=== PATIENT | male | born 1925 | race Caucasian/White ===

== ENCOUNTER → 2016-05-07 | Outpatient (CLI) | payer MEDICARE, OTHER ==
[~2016-05-07] MED LIST: BISA10SU8 PR; CIDA500T2 PO; DIGO0.25 PO; FEXO60TA PO; FOLI1 PO; LATA.005%O RIGHT EYE; LEVO0.5S15 EACH EYE; LEVO150T7 PO; LEXA10TA PO; MAGN30S PO; METO25 PO; MULT-112 PO; RIVA20 PO; STOO100T PO; SUPETAB20 PO; TYLE3 PO; VITA200017 PO; [UNRECOGNIZED DRUG - CODE] PR
[2016-05-07 13:06] LABS: AUTOMATED NEUTROPHIL # 5.7 TH/MM3 (1.8-7.7); BASOPHIL % 0.2 % (0.0-2.0); EOSINOPHIL # 0.3 TH/MM3 (0-0.4); HEMO FLAGS DIFF FINAL; LYMPH % 25.5 % (9.0-44.0); LYMPHOCYTE # 2.3 TH/MM3 (1.0-4.8); MEAN CELL VOLUME 96.8 FL (80.0-100.0); MEAN CORPUSCULAR HEMOGLOBIN 34.1 PG (27.0-34.0); MEAN CORPUSCULAR HGB CONC 35.3 % (32.0-36.0); NEUT % 63.3 % (16.0-70.0); PLATELET COUNT 205 TH/MM3 (150-450); RED BLOOD COUNT 4.34 MIL/MM3 (4.50-5.90); RED CELL DISTRIBUTION WIDTH 14.2 % (11.6-17.2)
[2016-05-07 13:39] LABS: ALKALINE PHOSPHATASE 132 U/L (45-117); ALT (GPT) 17 U/L (12-78); ANION GAP 8 MEQ/L (5-15); AST (GOT) 17 U/L (15-37); BICARBONATE 30.6 MEQ/L (21.0-32.0); BLOOD UREA NITROGEN 17 MG/DL (7-18); CHLORIDE 102 MEQ/L (98-107); GLOMERULAR FILTRATION RATE 76 ML/MIN (>89); GLUCOSE,FASTING 115 MG/DL (74-99); HDL CHOLESTEROL 69.5 MG/DL (40.0-60.0); LDL CHOLESTEROL 65 MG/DL (0-99); POTASSIUM 4.5 MEQ/L (3.5-5.1); SODIUM (NA) 141 MEQ/L (136-145); THYROXINE (T4) 7.8 MCG/DL (4.5-12.1); TOTAL BILIRUBIN ADULT 0.9 MG/DL (0.2-1.0)
[2016-05-07 16:20] LABS: HEMOGLOBIN A1b 1.5 %; HEMOGLOBIN Ao 85.6 %; HEMOGLOBIN P3 3.7 %
== END ==
LOC: PLAB 09:05
PROVIDERS: ATTEND Family Medicine
DX: I10 Essential (primary) hypertension (principal); E78.2 Mixed hyperlipidemia; E03.8 Other specified hypothyroidism; R53.83 Other fatigue; E55.9 Vitamin D deficiency, unspecified; Z79.899 Other long term (current) drug therapy
CPT/HCPCS: 36415; 80053; 80061; 82306; 83036; 84436; 84443; 84480; 85025

== ENCOUNTER → 2016-08-07 | Outpatient (CLI) | payer MEDICARE, OTHER ==
[2016-08-07 13:26] LABS: AUTOMATED NEUTROPHIL # 4.4 TH/MM3 (1.8-7.7); BASOPHIL # 0.1 TH/MM3 (0-0.2); BASOPHIL % 0.9 % (0.0-2.0); EOSINOPHIL # 0.2 TH/MM3 (0-0.4); EOSINOPHIL % 2.4 % (0.0-4.0); HEMATOCRIT 41.3 % (39.0-51.0); HEMO FLAGS DIFF FINAL; LYMPH % 30.3 % (9.0-44.0); LYMPHOCYTE # 2.3 TH/MM3 (1.0-4.8); MEAN CELL VOLUME 94.3 FL (80.0-100.0); MEAN CORPUSCULAR HEMOGLOBIN 33.2 PG (27.0-34.0); MEAN CORPUSCULAR HGB CONC 35.2 % (32.0-36.0); NEUT % 56.4 % (16.0-70.0); PLATELET COUNT 186 TH/MM3 (150-450); RED BLOOD COUNT 4.38 MIL/MM3 (4.50-5.90); RED CELL DISTRIBUTION WIDTH 13.9 % (11.6-17.2); WHITE BLOOD COUNT 7.7 TH/MM3 (4.0-11.0)
[2016-08-07 13:49] LABS: ALT (GPT) 21 U/L (12-78); ANION GAP 6 MEQ/L (5-15); AST (GOT) 17 U/L (15-37); BICARBONATE 29.7 MEQ/L (21.0-32.0); BLOOD UREA NITROGEN 11 MG/DL (7-18); CHLORIDE 104 MEQ/L (98-107); GLOMERULAR FILTRATION RATE 90 ML/MIN (>89); GLUCOSE,FASTING 99 MG/DL (74-99); POTASSIUM 4.1 MEQ/L (3.5-5.1); SODIUM (NA) 140 MEQ/L (136-145)
[2016-08-07 13:58] LABS: ALKALINE PHOSPHATASE 109 U/L (45-117); HDL CHOLESTEROL 59.6 MG/DL (40.0-60.0); LDL CHOLESTEROL 56 MG/DL (0-99); THYROXINE (T4) 7.2 MCG/DL (4.5-12.1); TOTAL BILIRUBIN ADULT 1.2 MG/DL (0.2-1.0)
== END ==
LOC: PLAB 08:15
PROVIDERS: ATTEND Family Medicine
DX: I10 Essential (primary) hypertension (principal); E78.2 Mixed hyperlipidemia; E03.8 Other specified hypothyroidism; R53.83 Other fatigue; E55.9 Vitamin D deficiency, unspecified; Z79.899 Other long term (current) drug therapy
CPT/HCPCS: 36415; 80053; 80061; 82306; 84436; 84443; 84480; 85025

== ENCOUNTER 2017-09-27 14:57 | Inpatient (IN) | payer MEDICARE, OTHER ==
[~2017-09-27] VITALS: Ht 182.9 cm; Wt 92.0 kg
[2017-09-27 15:05] VITALS: BP 158/82; PULSE 69; RESP 20; O2SAT 95
--- NOTE | 2017-09-27 15:12 | PD ---
HPI Chief Complaint: Fall Time Seen by Provider: 15:07 Travel History International Travel<30 days: No Contact w/Intl Traveler<30days: No Traveled to known affect area: No History of Present Illness HPI Patient comes in for evaluation of right hip pain status post mechanical fall while leaving [employer] today after lunch. Patient reports he was walking to his car when he misstepped on the sidewalk causing him to fall landing on his right hip. Patient does report and he has head slightly, but denies loss of consciousness. Patient is on Xarelto for A. fib. Denies any headache, change in vision, chest pain, shortness of breath, neck pain, or abdominal pain. Patient complaining of pain in his right hip describes as a achy soreness that radiates distally. Pain is worse with movement of his right hip. Patient received 4 mg of morphine in route by EMS that seemed to help his pain. 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, A-FIB) High Cholesterol: No Chemotherapy: No Chest Pain: No Congestive Heart Failure: No Diabetes: No Diminished Hearing: No Endocrine: Yes (THYROID) Gastrointestinal Disorders: Yes (constipation) Genitourinary: Yes (PROSTATE CA) Hepatitis: No Hiatal Hernia: No Hypertension: Yes Immune Disorder: No Musculoskeletal: Yes (FX RIGHT SCAPULA, ARTHRITIS, HIP/KNEE PAIN) Neurologic: Yes (BLE NEUROPATHY) Psychiatric: No Reproductive: No Respiratory: No Immunizations Current: No Radiation Therapy: No Thyroid Disease: Yes Past Surgical History Abdominal Surgery: Yes (jayson inguinal hernia x4 appendectomy) AICD: No Body Medical Devices: RIGHT SHOULDER, MESH TO LEFT GROIN, PACEMAKER, EYE LENS Cardiac Surgery: Yes (pacemaker x2) Endocrine Surgery: No Eye Surgery: Yes (jayson cataract removal left eyelid repair) Genitourinary Surgery: Yes (prostatectomy) Joint Replacement: Yes (RIGHT SHOULDER REPLACEMENT) Oral Surgery: Yes (t and a) Pacemaker: Yes (MEDTRONIC) Thoracic Surgery: Yes (PACEMAKER -- 2003, 2011) Other Surgery: Yes (PM) Social History Alcohol Use: Yes (WINE DAILY) Tobacco Use: No Substance Use: Yes Allergies-Medications (Allergen,Severity, Reaction): Coded Allergies: fluoxetine (Unverified Allergy, Severe, hallucinations, 12/04/16) along with tramadol caused hallucinations levobunolol (Unverified Allergy, Severe, UNKNOWN-ON PTS HISTORY AND PHYSICAL, 12/04/16) tramadol (Unverified Allergy, Severe, hallucinations, 12/04/16) along with prozac caused hallucinations azithromycin (Unverified Allergy, Mild, rash, 12/04/16) hives Reported Meds & Prescriptions Reported Meds & Active Scripts Active Reported Ibuprofen 200 Mg Tab 200-400 Mg PO Q4H PRN Stool Softener (Docusate Sodium) 100 Mg Tab 100 Mg PO DAILY Dulcolax Supp (Bisacodyl) 10 Mg Supp 10 Mg RECTAL DAILY Remeron (Mirtazapine) 15 Mg Tab 15 Mg PO HS Vitamin D3 (Cholecalciferol) 2,000 Unit Cap 2,000 Units PO DAILY Vitamin B-12 (Cyanocobalamin) 1,000 Mcg Tab 2,000 Mcg PO DAILY Preservision Areds 2 Softgel (Vit C/E/Zn/Coppr/Lutein/Zeaxan) 250-200-40 Capsule 1 Cap PO DAILY Lexapro (Escitalopram Oxalate) 20 Mg Tab 20 Mg PO DAILY Latanoprost Opth Drops (Latanoprost) 0.005% Drops 1 Drop EACH EYE HS Refrigerate until opened. Levobunolol Opth Drops (Levobunolol HCl) 0.5% Drops 1 Drop EACH EYE BID Potassium Chloride ER (Potassium Chloride) 10 Meq Tab 10 Meq PO DAILY Lasix (Furosemide) 20 Mg Tab 20 Mg PO DAILY AT 12NOON Lasix (Furosemide) 40 Mg Tab 40 Mg PO DAILY IN THE AM Diltiazem ER 12 HR (Diltiazem HCl) 60 Mg Caper 60 Mg PO DAILY [place] Thyroid (Thyroid) 15 Mg Tab 135 Mg PO DAILY Take 1 tablet (15mg) with a 120mg tablet for a total dose of 135mg [place] Thyroid (Thyroid) 120 Mg Tab 135 Mg PO DAILY Take 1 tablet (120mg) with a 15mg tablet for a total dose of 135mg Xarelto (Rivaroxaban) 20 Mg Tab 20 Mg PO DAILY Review of Systems Except as stated in HPI: all other systems reviewed are Neg Physical Exam Narrative GENERAL: Well-developed, overly nourished, in no acute distress, and non-ill appearing. SKIN: Focused skin assessment warm and dry. HEAD: Atraumatic. Normocephalic. EYES: Pupils equal and round. EOMI. No scleral icterus. No injection or drainage. ENT: No nasal bleeding or discharge. Mucous membranes pink and moist. NECK: Trachea midline. Supple. No nuclear rigidity. CARDIOVASCULAR: Dorsal pulses 2+, intact, and equal bilaterally. Capillary refill less than 2 seconds. RESPIRATORY: No accessory muscle use. No respiratory distress. MUSCULOSKELETAL: No obvious deformities. No clubbing. No cyanosis. No edema. Decreased range of motion right hip secondary pain. Right hip is externally rotated leg is shortened. Patient reports pain right hip with passive movement of right lower extremity. Hip: Pulses equal BL distal to injury. Capillary refill less than 2 seconds distal to injury and equal BL. FROM distal to injury and equal BL. Strength distal to injury equal BL. NV intact distal to injury and equal BL. Plantar flexion and dorsal flexion equal BL. Dorsal pulses equal BL. Sensation equal BL 1st web space. NEUROLOGICAL: Awake and alert. No obvious cranial nerve deficits. Motor grossly within normal limits. Normal speech. PSYCHIATRIC: Appropriate mood and affect; insight and judgment normal. Data Data Last Documented VS Vital Signs Date Time Temp Pulse Resp B/P (MAP) Pulse Ox O2 Delivery O2 Flow Rate FiO2 09/27/17 15:05 69 20 158/82 (107) 95 Orders Orders Basic Metabolic Panel (Bmp) (09/27/17 15:07) Complete Blood Count With Diff (09/27/17 15:07) Prothrombin Time / Inr (Pt) (09/27/17 15:07) Act Partial Throm Time (Ptt) (09/27/17 15:07) Iv Access Insert/Monitor (09/27/17 15:07) Ecg Monitoring (09/27/17 15:07) Oximetry (09/27/17 15:07) Sodium Chloride 0.9% Flush (Ns Flush) (09/27/17 15:15) Pelvis, Ap Only (Routine) (09/27/17 ) Femur (Ap & Lat/2vws) (09/27/17 ) Ct Brain W/O Iv Contrast(Rout) (09/27/17 ) Ct Cerv Spine W/O Contrast (09/27/17 ) Admit Order (Ed Use Only) (09/27/17 17:11) Morphine Inj (Morphine Inj) (09/27/17 17:15) Labs Laboratory Tests Test 09/27/17 15:15 White Blood Count 7.2 TH/MM3 Red Blood Count 4.43 MIL/MM3 Hemoglobin 14.6 GM/DL Hematocrit 42.9 % Mean Corpuscular Volume 96.8 FL Mean Corpuscular Hemoglobin 33.0 PG Mean Corpuscular Hemoglobin Concent 34.1 % Red Cell Distribution Width 13.9 % Platelet Count 182 TH/MM3 Mean Platelet Volume 8.3 FL Neutrophils (%) (Auto) 55.6 % Lymphocytes (%) (Auto) 31.8 % Monocytes (%) (Auto) 9.7 % Eosinophils (%) (Auto) 2.7 % Basophils (%) (Auto) 0.2 % Neutrophils # (Auto) 4.0 TH/MM3 Lymphocytes # (Auto) 2.3 TH/MM3 Monocytes # (Auto) 0.7 TH/MM3 Eosinophils # (Auto) 0.2 TH/MM3 Basophils # (Auto) 0.0 TH/MM3 CBC Comment DIFF FINAL Differential Comment Prothrombin Time 12.7 SEC Prothromb Time International Ratio 1.3 RATIO Activated Partial Thromboplast Time 27.2 SEC Blood Urea Nitrogen 15 MG/DL Creatinine 0.93 MG/DL Random Glucose 113 MG/DL Calcium Level 9.0 MG/DL Sodium Level 141 MEQ/L Potassium Level 4.4 MEQ/L Chloride Level 101 MEQ/L Carbon Dioxide Level 32.5 MEQ/L Anion Gap 8 MEQ/L Estimat Glomerular Filtration Rate 77 ML/MIN MDM Medical Decision Making Medical Screen Exam Complete: Yes Emergency Medical Condition: Yes Interpretation(s) Last Impressions Pelvis X-Ray 09/27/17 Signed Impressions: CONCLUSION: Acute intertrochanteric right hip fracture. Head CT 09/27/17 Signed Impressions: CONCLUSION: 1. Negative CT Head non contrast. Femur X-Ray 09/27/17 Signed Impressions: CONCLUSION: Intertrochanteric fracture. Cervical Spine CT 09/27/17 Signed Impressions: CONCLUSION: 1. No fracture or dislocation. 2. Pronounced diffuse degenerative changes. Differential Diagnosis Fracture, dislocation, contusion, strain Narrative Course Patient seen and examined. Initial laboratory radiological studies were ordered. IV was established patient was placed on continuous cardiac monitoring. Additional dose of 2 mg IV morphine was given as patient reports pain is coming back. Discussed all findings and plan of care with patient is agreeable for admission. All questions were answered. Discussed patient with Dr. Brunson, who is in agreement plan of care and disposition. Discussed patient with Dr. Mondragon, who is agreeable to admit the patient. Discussed patient with orthopedics is agreeable to consult on patient. Patient remained stable throughout ED course. Physician Communication Physician Communication [address] Mondragon, who is agreeable to admit the patient. 1716 spoke with Michele over nurse is Dr. Garrido and his PA were both scrubbed and reports Dr. Garrido's awhere of the patient and wants him n.p.o. after midnight and admit to medicine. Diagnosis Primary Impression: Intertrochanteric fracture of right hip Qualified Codes: S72.144A - Nondisplaced intertrochanteric fracture of right femur, initial encounter for closed fracture Admitting Information Admitting Physician Requests: Admit Condition: Stable Adam Mcdonald Sep 27, 2017 15:11
[2017-09-27 15:33] LABS: BASOPHIL % 0.2 % (0.0-2.0); EOSINOPHIL # 0.2 TH/MM3 (0-0.4); EOSINOPHIL % 2.7 % (0.0-4.0); HEMATOCRIT 42.9 % (39.0-51.0); HEMOGLOBIN 14.6 GM/DL (13.0-17.0); LYMPH % 31.8 % (9.0-44.0); LYMPHOCYTE # 2.3 TH/MM3 (1.0-4.8); MEAN CELL VOLUME 96.8 FL (80.0-100.0); MEAN CORPUSCULAR HGB CONC 34.1 % (32.0-36.0); MEAN PLATELET VOLUME 8.3 FL (7.0-11.0); MONO % 9.7 % (0.0-8.0); MONOCYTE # 0.7 TH/MM3 (0-0.9); NEUT % 55.6 % (16.0-70.0); PLATELET COUNT 182 TH/MM3 (150-450); RED BLOOD COUNT 4.43 MIL/MM3 (4.50-5.90); RED CELL DISTRIBUTION WIDTH 13.9 % (11.6-17.2); WHITE BLOOD COUNT 7.2 TH/MM3 (4.0-11.0)
[2017-09-27] MEDS ORDERED: VITA10002 PO (15:34)
[2017-09-27] MEDS ORDERED: DILT60CA PO (15:34)
[2017-09-27] MEDS ORDERED: ARMO120T PO (15:34)
[2017-09-27] MEDS ORDERED: DULC10SU3 RECTAL (15:34)
[2017-09-27] MEDS ORDERED: THYR15 PO (15:34)
[2017-09-27] MEDS ORDERED: LATA0.002 EACH EYE (15:34)
[2017-09-27] MEDS ORDERED: POTA10TA2 PO (15:34)
[2017-09-27] MEDS ORDERED: LEVO0.5S18 EACH EYE (15:34)
[2017-09-27] MEDS ORDERED: LEXA20TA PO (15:34)
[2017-09-27] MEDS ORDERED: REME15TA PO (15:34)
[2017-09-27] MEDS ORDERED: MULT10CA PO (15:34)
[2017-09-27] MEDS ORDERED: XARE20TA PO (15:34)
[2017-09-27] MEDS ORDERED: VITA2000 PO (15:34)
[2017-09-27] MEDS ORDERED: STOO100T PO (15:34)
[2017-09-27] MEDS ORDERED: FURO1TAB62 PO (15:34)
[2017-09-27] MEDS ORDERED: FURO1TAB60 PO (15:34)
[2017-09-27] MEDS ORDERED: IBUP200T47 PO (15:36)
[2017-09-27 15:43] LABS: INTERNATIONAL NORMALIZED RATIO 1.3 RATIO; PROTHROMBIN TIME - PATIENT 12.7 SEC (9.8-11.6)
[2017-09-27 15:58] LABS: BICARBONATE 32.5 MEQ/L (21.0-32.0); CREATININE 0.93 MG/DL (0.60-1.30)
--- NOTE | 2017-09-27 16:06 | RADRPT ---
EXAM DATE: 09/27/2017 3:55 PM EDT AGE/SEX: 89 years / Male INDICATIONS: Pain from fall in right hip. CLINICAL DATA: This is the patient's initial encounter. Patient reports that signs and symptoms have been present for 1 day and indicates a pain score of 10/10. MEDICAL/SURGICAL HISTORY: None. . Bladder surgery. COMPARISON: No prior exams available for comparison. FINDINGS: Examination of the pelvis demonstrates an acute nondisplaced intertrochanteric right hip fracture. No angulation or distraction. Left hip is intact as is the rest of the pelvis. Osteopenia noted. Multip le surgical clips within the pelvis. CONCLUSION: Acute intertrochanteric right hip fracture. Electronically signed by: Varinder Miguel MD 09/27/2017 4:05 PM EDT
--- NOTE | 2017-09-27 16:08 | RADRPT ---
EXAM DATE: 09/27/2017 3:53 PM EDT AGE/SEX: 89 years / Male INDICATIONS: Pain from fall in right hip. CLINICAL DATA: This is the patient's initial encounter. Patient reports that signs and symptoms have been present for 1 day and indicates a pain score of 10/10. MEDICAL/SURGICAL HISTORY: None. None. COMPARISON: No prior exams available for comparison. FINDINGS: There is a complete intertrochanteric fracture on the right side with avulsion of the lesser trochant er. Chronic vascular calcifications are seen. CONCLUSION: Intertrochanteric fracture. Electronically signed by: Nata Aguilera MD 09/27/2017 4:07 PM EDT
--- NOTE | 2017-09-27 16:10 | RADRPT ---
EXAM DATE: 09/27/2017 4:06 PM EDT AGE/SEX: 89 years / Male INDICATIONS: Trauma, fall today. CLINICAL DATA: This is the patient's initial encounter. Patient reports that signs and symptoms have been present for 1 day and indicates a pain score of 4/10. MEDICAL/SURGICAL HISTORY: Hypertension. Carcinoma, prostatic. Appendectomy. RADIATION DOSE: 40.92 CTDI (mGy) COMPARISON: [facility] [place] BRAIN W/O CONTRAST, 06/28/2015. . TECHNIQUE: CT of the head without contrast. Using automated exposure control and adjustment of the mA and/or kV according to patient size, radiation dose was kept as low as reasonably achievable to ob tain optimal diagnostic quality images. FINDINGS: Cerebrum: The ventricles are normal for age. No evidence of midline shift, mass lesion, hemorrhage or acute infarction. No extraaxial fluid collections are seen. Posterior Fossa: The cerebellum and brainstem are intact. The 4th ventricle is midline. The cerebe llopontine angle is unremarkable. Extracranial: The visualized portion of the orbits is intact. Skull: The calvaria is intact. No evidence of skull fracture. CONCLUSION: 1. Negative CT Head non contrast. Electronically signed by: Varinder Miguel MD 09/27/2017 4:08 PM EDT
--- NOTE | 2017-09-27 16:15 | RADRPT ---
EXAM DATE: 09/27/2017 4:08 PM EDT AGE/SEX: 89 years / Male INDICATIONS: Trauma, fall today. CLINICAL DATA: This is the patient's initial encounter. Patient reports that signs and symptoms have been present for 1 day and indicates a pain score of 5/10. MEDICAL/SURGICAL HISTORY: Hypertension. Carcinoma, prostatic. Appendectomy. RADIATION DOSE: 23.21 CTDI (mGy) COMPARISON: No prior exams available for comparison. TECHNIQUE: Contiguous axial images were obtained using helical multirow detector technique. The vol umetric data was post-processed with multiplanar reconstruction in oblique axial, sagittal, and coron al planes. Using automated exposure control and adjustment of the mA and/or kV according to patient s ize, radiation dose was kept as low as reasonably achievable to obtain optimal diagnostic quality roxanna ges. FINDINGS: No fracture or dislocation. Diffuse degenerative changes throughout the entire cervical spine. This i ncludes multilevel mild broad-based disc osteophyte complexes as well as prominent bony uncovertebral hypertrophy with bilateral neural foraminal narrowing. Calcified plaque involving the carotid arteri es. CONCLUSION: 1. No fracture or dislocation. 2. Pronounced diffuse degenerative changes. Electronically signed by: Varinder Miguel MD 09/27/2017 4:13 PM EDT
--- NOTE | 2017-09-27 17:06 | PD ---
Physical Exam Date Seen by Provider: Sep 27, 2017 Time Seen by Provider: 16:00 Narrative This is a 89-year-old male who presents after having a mechanical fall. I am seeing this patient with Earle Mcdonald PA-C. Patient apparently was finishing eating at [employer] when he was walking on the parking lot and tripped and fell. He reports hip pain. He also bumped his head. There was no reported loss of consciousness however the patient is on Xarelto. Data Data Last Documented VS Vital Signs Date Time Temp Pulse Resp B/P (MAP) Pulse Ox O2 Delivery O2 Flow Rate FiO2 09/27/17 15:05 69 20 158/82 (107) 95 Orders Orders Basic Metabolic Panel (Bmp) (09/27/17 15:07) Complete Blood Count With Diff (09/27/17 15:07) Prothrombin Time / Inr (Pt) (09/27/17 15:07) Act Partial Throm Time (Ptt) (09/27/17 15:07) Iv Access Insert/Monitor (09/27/17 15:07) Ecg Monitoring (09/27/17 15:07) Oximetry (09/27/17 15:07) Sodium Chloride 0.9% Flush (Ns Flush) (09/27/17 15:15) Pelvis, Ap Only (Routine) (09/27/17 ) Femur (Ap & Lat/2vws) (09/27/17 ) Ct Brain W/O Iv Contrast(Rout) (09/27/17 ) Ct Cerv Spine W/O Contrast (09/27/17 ) Labs Laboratory Tests Test 09/27/17 15:15 White Blood Count 7.2 TH/MM3 Red Blood Count 4.43 MIL/MM3 Hemoglobin 14.6 GM/DL Hematocrit 42.9 % Mean Corpuscular Volume 96.8 FL Mean Corpuscular Hemoglobin 33.0 PG Mean Corpuscular Hemoglobin Concent 34.1 % Red Cell Distribution Width 13.9 % Platelet Count 182 TH/MM3 Mean Platelet Volume 8.3 FL Neutrophils (%) (Auto) 55.6 % Lymphocytes (%) (Auto) 31.8 % Monocytes (%) (Auto) 9.7 % Eosinophils (%) (Auto) 2.7 % Basophils (%) (Auto) 0.2 % Neutrophils # (Auto) 4.0 TH/MM3 Lymphocytes # (Auto) 2.3 TH/MM3 Monocytes # (Auto) 0.7 TH/MM3 Eosinophils # (Auto) 0.2 TH/MM3 Basophils # (Auto) 0.0 TH/MM3 CBC Comment DIFF FINAL Differential Comment Prothrombin Time 12.7 SEC Prothromb Time International Ratio 1.3 RATIO Activated Partial Thromboplast Time 27.2 SEC Blood Urea Nitrogen 15 MG/DL Creatinine 0.93 MG/DL Random Glucose 113 MG/DL Calcium Level 9.0 MG/DL Sodium Level 141 MEQ/L Potassium Level 4.4 MEQ/L Chloride Level 101 MEQ/L Carbon Dioxide Level 32.5 MEQ/L Anion Gap 8 MEQ/L Estimat Glomerular Filtration Rate 77 ML/MIN MDM Medical Record Reviewed: Yes Supervised Visit with ZULEIKA: Yes Differential Diagnosis Fracture versus contusion versus dislocation Narrative Course 89-year-old male presents after having a mechanical fall while tripping in the parking lot after eating narrow. The patient has a right intertrochanteric fracture. He will be admitted to his primary care physician, Dr. Juanito quiroga. The case was discussed with the orthopedic physician who will see the patient in consultation. He will need to have his anticoagulation stopped in order to have the surgery. The patient will be placed in Patel's traction. Diagnosis Primary Impression: Intertrochanteric fracture of right hip Additional Impressions: Afib Anticoagulated History of pacemaker Admitting Information Admitting Physician Requests: Admit Nghia Brunson MD Sep 27, 2017 17:06
[2017-09-27] MEDS ORDERED: MORPHINE SULFATE 4 MG/ML INJ IV PUSH ONE (17:15)
--- NOTE | 2017-09-27 17:40 | HHI.HP ---
History of Present Illness Primary Care Physician Salvador Mondragon, DO Admission Diagnosis Right hip fracture Diagnoses: History of Present Illness fell in parking lot Review of Systems Constitutional: COMPLAINS OF: Dizziness Musculoskeletal: COMPLAINS OF: Joint pain Past Family Social History Allergies: Coded Allergies: fluoxetine (Unverified Allergy, Severe, hallucinations, 12/04/16) along with tramadol caused hallucinations levobunolol (Unverified Allergy, Severe, UNKNOWN-ON PTS HISTORY AND PHYSICAL, 12/04/16) tramadol (Unverified Allergy, Severe, hallucinations, 12/04/16) along with prozac caused hallucinations azithromycin (Unverified Allergy, Mild, rash, 12/04/16) hives Reported Medications Reported Meds & Active Scripts Active Reported Stool Softener (Docusate Sodium) 100 Mg Tab 100 Mg PO DAILY Dulcolax Supp (Bisacodyl) 10 Mg Supp 10 Mg RECTAL DAILY Remeron (Mirtazapine) 15 Mg Tab 15 Mg PO HS Vitamin D3 (Cholecalciferol) 2,000 Unit Cap 2,000 Units PO DAILY Vitamin B-12 (Cyanocobalamin) 1,000 Mcg Tab 2,000 Mcg PO DAILY Preservision Areds 2 Softgel (Vit C/E/Zn/Coppr/Lutein/Zeaxan) 250-200-40 Capsule 1 Cap PO DAILY Lexapro (Escitalopram Oxalate) 20 Mg Tab 20 Mg PO DAILY Latanoprost Opth Drops (Latanoprost) 0.005% Drops 1 Drop EACH EYE HS Refrigerate until opened. Levobunolol Opth Drops (Levobunolol HCl) 0.5% Drops 1 Drop EACH EYE BID Potassium Chloride ER (Potassium Chloride) 10 Meq Tab 10 Meq PO DAILY Lasix (Furosemide) 20 Mg Tab 20 Mg PO DAILY AT 12NOON Lasix (Furosemide) 40 Mg Tab 40 Mg PO DAILY IN THE AM Diltiazem ER 12 HR (Diltiazem HCl) 60 Mg Caper 60 Mg PO DAILY [place] Thyroid (Thyroid) 15 Mg Tab 135 Mg PO DAILY Take 1 tablet (15mg) with a 120mg tablet for a total dose of 135mg [place] Thyroid (Thyroid) 120 Mg Tab 135 Mg PO DAILY Take 1 tablet (120mg) with a 15mg tablet for a total dose of 135mg Xarelto (Rivaroxaban) 20 Mg Tab 20 Mg PO DAILY Active Ordered Medications depression a fib hptn djd Family History father in old age mother of cancer Social History non smoker occ wine drinker Physical Exam Vital Signs Vital Signs Date Time Temp Pulse Resp B/P (MAP) Pulse Ox O2 Delivery O2 Flow Rate FiO2 09/27/17 15:05 69 20 158/82 (107) 95 Physical Exam GENERAL: This is a well-nourished, well-developed patient, in no apparent distress. SKIN: No rashes, ecchymoses or lesions. Cool and dry. HEAD: Atraumatic. Normocephalic. No temporal or scalp tenderness. EYES: Pupils equal round and reactive. Extraocular motions intact. No scleral icterus. No injection or drainage. ENT: Nose without bleeding, purulent drainage or septal hematoma. Throat without erythema, tonsillar hypertrophy or exudate. Uvula midline. Airway patent. NECK: Trachea midline. No JVD or lymphadenopathy. Supple, nontender, no meningeal signs. CARDIOVASCULAR: Regular rate and rhythm without murmurs, gallops, or rubs. RESPIRATORY: Clear to auscultation. Breath sounds equal bilaterally. No wheezes , rales, or rhonchi. GASTROINTESTINAL: Abdomen soft, non-tender, nondistended. No hepato-splenomegaly , or palpable masses. No guarding. MUSCULOSKELETAL: Extremities without clubbing, cyanosis, or edema. r hip painful r shoulder with old surgery scars NEUROLOGICAL: Awake and alert. Cranial nerves II through XII intact. Motor and sensory grossly within normal limits. Five out of 5 muscle strength in all muscle groups. Normal speech. Laboratory Laboratory Tests Test 09/27/17 15:15 White Blood Count 7.2 Red Blood Count 4.43 Hemoglobin 14.6 Hematocrit 42.9 Mean Corpuscular Volume 96.8 Mean Corpuscular Hemoglobin 33.0 Mean Corpuscular Hemoglobin Concent 34.1 Red Cell Distribution Width 13.9 Platelet Count 182 Mean Platelet Volume 8.3 Neutrophils (%) (Auto) 55.6 Lymphocytes (%) (Auto) 31.8 Monocytes (%) (Auto) 9.7 Eosinophils (%) (Auto) 2.7 Basophils (%) (Auto) 0.2 Neutrophils # (Auto) 4.0 Lymphocytes # (Auto) 2.3 Monocytes # (Auto) 0.7 Eosinophils # (Auto) 0.2 Basophils # (Auto) 0.0 CBC Comment DIFF FINAL Differential Comment Prothrombin Time 12.7 Prothromb Time International Ratio 1.3 Activated Partial Thromboplast Time 27.2 Blood Urea Nitrogen 15 Creatinine 0.93 Random Glucose 113 Calcium Level 9.0 Sodium Level 141 Potassium Level 4.4 Chloride Level 101 Carbon Dioxide Level 32.5 Anion Gap 8 Estimat Glomerular Filtration Rate 77 Result Diagram: 09/27/17 1515 09/27/17 1515 Imaging Last Impressions Pelvis X-Ray 09/27/17 0000 Signed Impressions: CONCLUSION: Acute intertrochanteric right hip fracture. Head CT 09/27/17 0000 Signed Impressions: CONCLUSION: 1. Negative CT Head non contrast. Femur X-Ray 09/27/17 0000 Signed Impressions: CONCLUSION: Intertrochanteric fracture. Cervical Spine CT 09/27/17 0000 Signed Impressions: CONCLUSION: 1. No fracture or dislocation. 2. Pronounced diffuse degenerative changes. Caprini VTE Risk Assessment Caprini VTE Risk Assessment: No/Low Risk (score <= 1) Caprini Risk Assessment Model Point Value = 1 Point Value = 2 Point Value = 3 Point Value = 5 Age 41-60 Minor surgery BMI > 25 kg/m2 Swollen legs Varicose veins or History of unexplained or recurrent spontaneous Oral contraceptives or hormone replacement Sepsis (< 1 month) Serious lung disease, including pneumonia (< 1 month) Abnormal pulmonary function Acute myocardial infarction Congestive heart failure (< 1 month) History of inflammatory bowel disease Medical patient at bed rest Age 61-74 Arthroscopic surgery Major open surgery (> 45 min) Laparoscopic surgery (> 45 min) Malignancy Confined to bed (> 72 hours) Immobilizing plaster cast Central venous access Age >= 75 History of VTE Family history of VTE Factor V Leiden Prothrombin [id number] Lupus anticoagulant Anticardiolipin antibodies Elevated serum homocysteine Heparin-induced thrombocytopenia Other congenital or acquired thrombophilia Stroke (< 1 month) Elective arthroplasty Hip, pelvis, or leg fracture Acute spinal cord injury (< 1 month) Prophylaxis Regimen Total Risk Factor Score Risk Level Prophylaxis Regimen 0-1 Low Early ambulation 2 Moderate Order ONE of the following: *Sequential Compression Device (SCD) *Heparin 5000 units SQ BID 3-4 Higher Order ONE of the following medications: *Heparin 5000 units SQ TID *Enoxaparin/Lovenox 40 mg SQ daily (WT < 150 kg, CrCl > 30 mL/min) *Enoxaparin/Lovenox 30 mg SQ daily (WT < 150 kg, CrCl > 10-29 mL/min) *Enoxaparin/Lovenox 30 mg SQ BID (WT < 150 kg, CrCl > 30 mL/min) AND/OR *Sequential Compression Device (SCD) 5 or more Highest Order ONE of the following medications: *Heparin 5000 units SQ TID (Preferred with Epidurals) *Enoxaparin/Lovenox 40 mg SQ daily (WT < 150 kg, CrCl > 30 mL/min) *Enoxaparin/Lovenox 30 mg SQ daily (WT < 150 kg, CrCl > 10-29 mL/min) *Enoxaparin/Lovenox 30 mg SQ BID (WT < 150 kg, CrCl > 30 mL/min) AND *Sequential Compression Device (SCD) Assessment and Plan Problem List: (1) Intertrochanteric fracture of right hip ICD Codes: S72.141A - Displaced intertrochanteric fracture of right femur, initial encounter for closed fracture Status: Acute Plan: consult ortho for afib (2) Afib ICD Codes: I48.91 - Unspecified atrial fibrillation Status: Acute Plan: consult cardiology (3) History of pacemaker ICD Codes: Z95.0 - Presence of cardiac pacemaker Status: Acute Plan: consult cardiology Problem Qualifiers (1) Intertrochanteric fracture of right hip: Qualified Codes: S72.144A - Nondisplaced intertrochanteric fracture of right femur, initial encounter for closed fracture Salvador Mondragon DO Sep 27, 2017 17:40
[2017-09-27 18:17] VITALS: BP 139/76; PULSE 77; RESP 13; O2SAT 96
[2017-09-27 19:45] VITALS: BP 131/63; PULSE 72; RESP 18; TEMP 97.8; O2SAT 97
[2017-09-27] MEDS: MIRTAZAPINE 15 MG TAB PO SCH (21:22)
[2017-09-27] MEDS: LATANOPROST 0.005% OPHT SOLN 2.5 ML BTL EACH EYE SCH (22:58)
[2017-09-27] MEDS: LEVOBUNOLOL HCL 0.5% OPHT SOLN 5 ML BTL EACH EYE SCH (22:59)
[2017-09-28] VITALS: BP 111/57; PULSE 67; RESP 18; TEMP 98.3; O2SAT 95
[2017-09-28] MEDS: MORPHINE SULFATE 4 MG/ML INJ IV PRN ×5 (00:19→21:01)
[2017-09-28 00:39] LABS: INTERNATIONAL NORMALIZED RATIO 1.2 RATIO; PROTHROMBIN TIME - PATIENT 12.2 SEC (9.8-11.6)
[2017-09-28] MEDS ORDERED: SODIUM CHLORID 0.9% 500 ML IV PRN (03:30)
[2017-09-28] MEDS ORDERED: POVIDONE IODINE 5% (ANTISEPSIS KIT) 4 APPLICATIONS EACH NARE PRN (03:30)
[2017-09-28] MEDS ORDERED: CHLORHEXIDINE GLUCONATE 2 % 1 PACK (2 CLOTHS) TOPICAL PRN (03:30)
[2017-09-28 04:00] VITALS: BP 124/67; PULSE 65; RESP 18; TEMP 98.2; O2SAT 95
[2017-09-28] MEDS: LACTATED RINGER'S 1000 ML IV PRN (06:16)
[2017-09-28] MEDS ORDERED: ACETAMINOPHEN 1000 MG/100 ML 0 ML IV ONE (06:49)
[2017-09-28] MEDS ORDERED: VITA500012 PO (07:03)
[2017-09-28] MEDS ORDERED: VITA2000 PO (07:03)
[2017-09-28] MEDS ORDERED: WALKER/ADULT/FO1 MIS (07:03)
[2017-09-28] MEDS ORDERED: HYDR-3580 PO (07:03)
[2017-09-28] MEDS ORDERED: CALCTAB19 PO (07:03)
--- NOTE | 2017-09-28 07:56 | MB ---
cc: Mason Garrido MD DATE: 09/28/2017 REASON FOR CONSULTATION: Right hip intertrochanteric fracture. CONSULTING PHYSICIAN: Dr. Salvador Mondragon. HISTORY OF PRESENT ILLNESS: Pradip is an 89-year-old male who had a fall. He did have some dizziness. He fell and landed on his right side. He had immediate right hip pain. He had difficulty standing or ambulating. He presented to the Emergency Room, where x-rays revealed a right hip intertrochanteric fracture. He is currently awake and alert, on the orthopedic floor. His only complaint is his right hip. Pain is improved with rest and is worse with movement. He denies any hip pain prior to his fall. PAST MEDICAL AND SURGICAL HISTORY: Depression, atrial fibrillation, hypertension, arthritis. FAMILY HISTORY: Positive for cancer in his mother. SOCIAL HISTORY: The patient denies tobacco or drug use. He drinks occasional wine. REVIEW OF SYSTEMS: The patient denies headache, visual changes, neck pain, chest pain, shortness of breath, abdominal pain, nausea, vomiting, recent weight loss, fevers or chills, or numbness or tingling of his extremities. He complains of right hip pain. The pain is worse with movement. LABORATORY DATA: The patient has a white blood cell count of 7.2, hematocrit of 42.9, platelet count of 182. INR 1.2. potassium 4.4, BUN 15, creatinine 0.90. IMAGING STUDIES: X-rays of the right hip were reviewed. X-rays revealed a minimally displaced right hip intertrochanteric fracture. PHYSICAL EXAMINATION: GENERAL: The patient is a well-developed, well-nourished 89-year-old male. He is awake and alert. He is in no acute distress. VITAL SIGNS: Temperature 98.2, pulse 65, respirations 18, blood pressure 124/67, O2 saturation 95% on room air. HEENT: Head: The patient is normocephalic. Pupils are equal. NECK: Soft and nontender. The trachea is in the midline. ABDOMEN: Soft, nontender, and nondistended. EXTREMITIES: Examination of bilateral upper extremities reveals minimal pain with shoulder, elbow or wrist motion. He has good capillary refill in his fingers. Skin is intact. Radial pulses are palpable. Examination of left leg reveals no pain with hip, knee or ankle motion. Skin is intact. Dorsalis pedis pulse is palpable. Examination of the right leg reveals pain with any hip motion. He has no tenderness around his knee, tibia or ankle. Skin is intact. Dorsalis pedis pulse is palpable. Sensation is intact. IMPRESSION: 1. Atrial fibrillation. 2. Dizziness with possible syncope. 3. Right hip intertrochanteric fracture. PLAN: Treatment options were discussed with the patient. At this point, I would recommend right hip reduction and intramedullary nail fixation. Risks of surgery include bleeding, infection; injuries to arteries, nerves and blood vessels; nonunion, malunion, painful hardware as well as medical complications including blood clot, stroke, heart attack and . Cardiology consult and clearance is pending. I will plan on surgery once this is completed. All questions were answered. A mid-level provider in my office, nurse practitioner or PA, may see this patient on a follow-up basis and continue to implement the objective of this plan including: Starting or adjusting medications, injections of muscle, tendon, bursa or joints, cast application, orthotic or brace application, physical therapy, further radiographic studies including x-ray, MRI, CT, ultrasounds or bone scan, vascular studies, neurologic studies, or other specialist consultations, and proceeding with surgical management as appropriate. MD DENNIS Lugo/EDILBERTO , 07:15 AM , 07:54 AM
[2017-09-28 08:00] VITALS: BP 132/64; PULSE 73; RESP 20; TEMP 99.1; O2SAT 96
[2017-09-28] MEDS ORDERED: THYROID 60 MG TAB PO SCH (09:00)
[2017-09-28] MEDS ORDERED: PT PRESERVISION AREDS PO SCH (09:00)
[2017-09-28] MEDS ORDERED: DILTIAZEM 60 MG PO SCH ×2 (09:00)
[2017-09-28] MEDS: THYROID 15 MG TAB PO SCH (09:00)
[2017-09-28] MEDS: DOCUSATE SODIUM 100 MG CAP PO SCH (09:00)
[2017-09-28] MEDS: CYANOCOBALAMIN 1,000 MCG TAB PO SCH (09:00)
[2017-09-28] MEDS ORDERED: DOCUSATE SODIUM 100 MG PO SCH (09:00)
[2017-09-28] MEDS ORDERED: NON-FORMULARY DRUG (Vit C/E/Zn/Coppr/Lutein/Zeaxan (Preservision Areds 2 Softgel) 1 CAP) PO SCH (09:00)
[2017-09-28] MEDS: BISACODYL 10 MG SUPP RECTAL SCH (09:00)
[2017-09-28] MEDS: LEVOBUNOLOL HCL 0.5% OPHT SOLN 5 ML BTL EACH EYE SCH ×2 (09:42→21:01)
[2017-09-28] MEDS: ESCITALOPRAM OXALATE 20 MG TAB PO SCH (09:43)
[2017-09-28] MEDS: FUROSEMIDE 20 MG TAB PO SCH (09:43)
[2017-09-28] MEDS: CHOLECALCIFEROL (VIT D3) 1000 UNIT TAB PO SCH (09:43)
[2017-09-28] MEDS: POTASSIUM CHLORIDE 10 MEQ CONTROLLED RELEASE TAB PO SCH (09:44)
--- NOTE | 2017-09-28 11:45 | HHI.PR ---
Subjective Remarks Patient to go to OR today for ORIF right femur fracture pending Cards clearance. Objective Vital Signs Date Time Temp Pulse Resp B/P (MAP) Pulse Ox O2 Delivery O2 Flow Rate FiO2 09/28/17 08:00 99.1 73 20 132/64 (86) 96 09/28/17 04:00 98.2 65 18 124/67 (86) 95 09/28/17 00:00 98.3 67 18 111/57 (75) 95 09/27/17 19:45 97.8 72 18 131/63 (85) 97 09/27/17 18:17 77 13 139/76 (97) 96 Room Air 09/27/17 15:05 69 20 158/82 (107) 95 I/O 09/27/17 09/27/17 09/27/17 09/28/17 09/28/17 09/28/17 07:00 15:00 23:00 07:00 15:00 23:00 Intake Total 400 ml Output Total 750 ml Balance -350 ml Intake Oral 400 ml Output Urine Total 750 ml # Bowel Movements 0 Result Diagram: 09/27/17 1515 09/27/17 1515 Imaging Last Impressions Pelvis X-Ray 09/27/17 0000 Signed Impressions: CONCLUSION: Acute intertrochanteric right hip fracture. Head CT 09/27/17 0000 Signed Impressions: CONCLUSION: 1. Negative CT Head non contrast. Femur X-Ray 09/27/17 0000 Signed Impressions: CONCLUSION: Intertrochanteric fracture. Cervical Spine CT 09/27/17 0000 Signed Impressions: CONCLUSION: 1. No fracture or dislocation. 2. Pronounced diffuse degenerative changes. Objective Remarks GENERAL: SKIN: Warm and dry. HEAD: Normocephalic. EYES: No scleral icterus. No injection or drainage. NECK: Supple, trachea midline. No JVD or lymphadenopathy. CARDIOVASCULAR: Regular rate and rhythm without murmurs, gallops, or rubs. RESPIRATORY: Breath sounds equal bilaterally. No accessory muscle use. GASTROINTESTINAL: Abdomen soft, non-tender, nondistended. MUSCULOSKELETAL: No cyanosis, or edema. Right hip pain with splint in place. BACK: Nontender without obvious deformity. No CVA tenderness. Medications and IVs Current Medications Medications (Trade) Dose Ordered Sig/Rambo Route Start Time Stop Time Status Last Admin (NS Flush) 2 ml UNSCH PRN IV FLUSH 6/8/18 15:15 (Dulcolax Supp) 10 mg DAILY RECTAL 09/28/17 09:00 (Vitamin D3) 2,000 units DAILY PO 09/28/17 09:00 09/28/17 09:43 (Vitamin B12) 2,000 mcg DAILY PO 09/28/17 09:00 09/28/17 09:00 (Lexapro) 20 mg DAILY PO 09/28/17 09:00 09/28/17 09:43 (Lasix) 20 mg DAILY PO 09/28/17 09:00 09/28/17 09:43 (Xalatan 0.005% Opth Soln) 1 drop HS EACH EYE 09/27/17 21:00 09/27/17 22:58 (Betagan Liquifilm 0.5%) 1 drop BID EACH EYE 09/27/17 21:00 09/28/17 09:42 (Remeron) 15 mg HS PO 09/27/17 21:00 09/27/17 21:22 (KCl) 10 meq DAILY PO 09/28/17 09:00 09/28/17 09:44 ([place] Thyroid) 135 mg DAILY PO 09/28/17 09:00 Future hold Patient Own Medication PT OWN MED: DILTIA... DAILY PO 09/28/17 09:00 Future Hold (Colace) 100 mg DAILY PO 09/28/17 09:00 Patient Own Medication PT OWN MED: PRESERVISION AREDS 2... DAILY PO 09/28/17 09:00 Future Hold (Morphine Inj) 2 mg Q4H PRN IV 09/27/17 21:30 09/28/17 10:41 Lactated Ringer's 1,000 ml @ 30 mls/hr Q24H PRN IV 09/28/17 03:30 10/01/17 03:29 09/28/17 06:16 Sodium Chloride 500 ml @ 30 mls/hr [id number] PRN IV 09/28/17 03:30 10/01/17 03:29 (Betadine 5% Antisepsis Kit) 1 applic DYNAMITE SHOOTER PRN EACH NARE 09/28/17 03:30 10/01/17 03:29 (Chlorhexidine 2% Cloth) 3 pack DYNAMITE SHOOTER PRN TOPICAL 6/9/18 03:30 10/01/17 03:29 Assessment and Plan Problem List: (1) Intertrochanteric fracture of right hip ICD Codes: S72.141A - Displaced intertrochanteric fracture of right femur, initial encounter for closed fracture Status: Acute Plan: F/U Ortho and Cards recommendations Assessment and Plan F/U Cards and Ortho recommendations S/P right femur fracture Discussed 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
[2017-09-28 12:00] VITALS: BP 112/69; PULSE 63; RESP 20; TEMP 98.5; O2SAT 96
--- NOTE | 2017-09-28 14:49 | EKG ---
Date Performed: 09/28/2017 Time Performed: 05:25:18 PTAGE: 89 years EKG: Atrial fibrillation Demand pacing Possible inferior infarct - age undetermined Anterolatera l T wave changes are nonspecific Abnormal ECG NO PREVIOUS TRACING DOCTOR: Gary Patel Interpretating Date/Time 09/28/2017 14:48:17
[2017-09-28 16:00] VITALS: BP 119/63; PULSE 72; RESP 18; TEMP 98.5; O2SAT 96
[2017-09-28 16:50] VITALS: BP 137/78; PULSE 63; RESP 18; TEMP 98.5; O2SAT 95
[2017-09-28] MEDS: MIRTAZAPINE 15 MG TAB PO SCH (21:00)
[2017-09-28] MEDS: LATANOPROST 0.005% OPHT SOLN 2.5 ML BTL EACH EYE SCH (21:01)
[2017-09-29 00:12] VITALS: BP 113/59; PULSE 68; RESP 18; TEMP 98.3; O2SAT 95
[2017-09-29 04:20] VITALS: BP 141/63; PULSE 75; RESP 18; TEMP 97.3; O2SAT 96
[2017-09-29] MEDS: LACTATED RINGER'S 1000 ML IV PRN (05:12)
[2017-09-29] MEDS ORDERED: VANCOMYCIN HCL 1000 MG VIAL ONE (07:44)
[2017-09-29] MEDS ORDERED: ceFAZolin 2 GM PREMIX 50 ML ONE (07:44)
[2017-09-29] MEDS ORDERED: SODIUM CHLOR 0.9% 250 ML INJ 250 ML ONE (07:45)
--- NOTE | 2017-09-29 08:09 | MB ---
cc: Osmel Saez Vincent G DO DATE: 09/28/2017 REASON FOR CONSULTATION: Preoperative cardiovascular evaluation. HISTORY OF PRESENT ILLNESS: Pradip Hare is a pleasant 89-year-old male who sees my partner, Dr. Hayden Tirado, in the office and presented after a mechanical fall. He was leaving [facility] on 09/27/2017 after lunch when he misstepped on the sidewalk causing him to fall landing on his right hip. Pain continued to worsen and so he presented to the Emergency Room. On arrival, he was found to have a right intertrochanteric fracture and was seen by Dr. Garrido for consideration of surgery. I was asked to see him for preoperative cardiovascular evaluation to help in his management. In seeing him, he is currently hemodynamically stable without chest pain or shortness of breath. He does have a history of atrial fibrillation. He is currently electrically stable. He is on Xarelto for his atrial fibrillation. PAST MEDICAL HISTORY: 1. Depression. 2. Atrial fibrillation. 3. Hypertension. 4. Arthritis. PAST SURGICAL HISTORY: 1. Permanent pacemaker placement. 2. Appendectomy. 3. Prostatectomy. 4. Bilateral eye lens implants. 5. ORIF right scapula (06/16/2015). 6. Hernia repair x 4. ALLERGIES: 1. AZITHROMYCIN. 2. FLUOXETINE. 3. LEVOBUNOLOL. 4. TRAMADOL. MEDICATIONS: 1. Xarelto 20 mg daily. 2. Cardizem 60 mg daily. 3. Lexapro 20 mg daily. 4. Remeron 15 mg every night. 5. Potassium 10 mEq daily. 6. Lasix 40 mg in the morning and 20 mg in the afternoon. 7. Levobunolol 1 drop each eye b.i.d. 8. Latanoprost 1 drop each eye every night. 9. [place] Thyroid ____ mg daily. FAMILY HISTORY: Denies premature coronary artery disease or sudden cardiac within the family. SOCIAL HISTORY: He drinks 1 glass a day of wine. Smoked socially in college, but quit after that. Denies drug abuse. REVIEW OF SYSTEMS: Fourteen systems were reviewed including osteopathic pertinent positives and negatives as above, otherwise negative. PHYSICAL EXAMINATION: VITAL SIGNS: Temperature 98.5, heart rate 72, blood pressure 119/63, respirations 18, pulse oximetry 96% on room air. GENERAL: The patient appears well in no acute distress, alert, awake and oriented x3. HEENT: Extraocular muscles intact. Mucous membranes moist. NECK: Supple. No JVD at 45 degrees. No carotid bruits heard bilaterally. HEART: Rate is irregularly irregular. Positive first and second heart sounds with no noted murmurs, gallops or rubs. LUNGS: Clear to auscultation bilaterally. No wheezes, rales or rhonchi. ABDOMEN: Soft, nontender, nondistended. No organomegaly noted. EXTREMITIES: Show no clubbing, cyanosis or edema. Right lower extremity is somewhat turned out and shorter than the left. NEUROLOGIC: No focal deficits. SKIN: Warm, dry and intact. OSTEOPATHIC: No kyphoscoliosis, lordosis or paraspinal tender points. Electrocardiogram (09/28/2017 at 0525): Atrial fibrillation with controlled ventricular response, demand pacing, inferior infarct age undetermined, no change from previous (06/28/2015). LABORATORY DATA: Hemoglobin 14.6, hematocrit 42.9, platelets 182. Potassium 4.4, BUN 15, creatinine 0.93. IMPRESSION: 1. Preoperative cardiovascular exam. 2. Mechanical fall. 3. Right intertrochanteric fracture. 4. Atrial fibrillation. 5. History of hypertension. RECOMMENDATIONS: 1. Mr. Hare presented after a mechanical fall with a right hip fracture and was evaluated by Dr. Garrido for possible surgery. 2. I was asked to see him preoperatively for cardiovascular risk assessment. Overall, I believe that he is an intermediate risk and should proceed as the known morbidity and mortality of not undergoing surgery for this is extensive. Overall, he has no chest pain, is not in heart failure, and is electrically and hemodynamically stable and may proceed. 3. I discussed this with Dr. Garrido over the phone. 4. We will continue to follow him with you to help out postoperatively with his management. 5. Xarelto has been held with his last dose being on 09/26. Thank you for allowing me to see Pradip Hare. If there are any questions, please do not hesitate to call. DO ALLEN Zayas//dyana , 09:47 PM , 11:24 PM
--- NOTE | 2017-09-29 08:27 | PD.OP ---
Operative Report Date of Surgery: Sep 29, 2017 Preoperative Diagnosis: Right hip intertrochanteric fracture Postoperative Diagnosis: Procedure: Right hip reduction and intramedullary fixation Anesthesia: General Surgeon: Mason Woody Patient Access Associate(s): Eugenio Gillette PA-C The surgical procedure was assisted by my physician salon shampoo assistant. My P.A. presence was necessary throughout this case for the manipulation and positioning of the surgical extremity. My P.A. was assisting me throughout the duration of this procedure. The skill set of a physician salon shampoo assistant was medically necessary to complete this procedure. During the surgical case the surgical elastic knitter hand frame was working at the back table and the physician salon shampoo assistant was directly assisting me. Operation and Findings: implants used: [Biomet 13]mm short troch nail Plan of activity: Weight-bear as tolerated Patient was seen and evaluated preoperatively. The patient has significant hip pain from intertrochanteric hip fracture. The risk and benefits of surgery were discussed in depth with the patient to include bleeding infection nonunion malunion and need for hip replacement painful hardware as well as medical competitions including but not stroke heart attack and . Informed consent was obtained. Operative site was marked. Patient was brought to the operating room and placed on fracture table. IV sedation was administered by anesthesiologist. Timeout procedure was performed. Hip and leg were prepped with alcohol followed by DuraPrep and draped in the usual sterile fashion. IV antibiotics were given prior to incision. Procedure began with reduction of fracture. Traction was applied. The leg was manipulated to achieve reduction. Excellent reduction was achieved. Fluoroscopy was used to confirm reduction. A three inch incision was made proximal to the trochanter. Subcutaneous tissue was dissected bluntly. Guidepin was placed at the tip of the trochanter and advanced into the femoral canal. Fluoroscopy confirmed appropriate guidepin placement. A opening reamer was placed over the guidepin. The nail was attached to the insertion handle. Nail was now placed through the tip of the trochanter into the femoral canal. Fluoroscopy confirmed appropriate nail placement. A second incision was made over the lateral thigh. Cannulas were placed through the insertion handle down to the femur. Guidepin was now placed through the femoral nail into the center of the femoral head. Fluoroscopy confirmed appropriate guidepin placement. Screw length was measured. Cannulated drill was placed over the guidepin. Appropriate length lag screw was now placed. Traction was released and compression was applied. The set screw was now tightened in dynamic mode. Using the insertion handle as a guide a distal interlocking screw was drilled and placed. Final fluoroscopy revealed well aligned fracture with well-placed hardware. Incision was closed with 3-0 Vicryl and rosalie. Sterile dressings were applied. Patient was awakened and transferred to recovery room. Mason Woody MD Sep 29, 2017 08:27
[2017-09-29] MEDS ORDERED: diphenhydrAMINE HCL 25 MG CAP PO PRN (08:30)
[2017-09-29] MEDS ORDERED: ERGOCALCIFEROL (VIT D2) 50,000 UNIT CAP PO ONE (08:30)
[2017-09-29] MEDS ORDERED: *morphine SULFATE 4 MG/ML PERIprocedure ONLY ONE (08:55)
[2017-09-29] MEDS ORDERED: DO NOT ADM ANY ANTICOAGULANT DRUGS PRN (08:56)
[2017-09-29] MEDS: LEVOBUNOLOL HCL 0.5% OPHT SOLN 5 ML BTL EACH EYE SCH ×2 (09:00→21:33)
[2017-09-29] MEDS: ESCITALOPRAM OXALATE 20 MG TAB PO SCH (09:00)
[2017-09-29] MEDS: BISACODYL 10 MG SUPP RECTAL SCH (09:00)
--- NOTE | 2017-09-29 09:59 | RADRPT ---
EXAM DATE: 09/29/2017 9:57 AM EDT AGE/SEX: 89 years / Male INDICATIONS: ORIF Intertrochanteric nail placement. CLINICAL DATA: This is the patient's initial encounter. Patient reports that signs and symptoms have been present for 1 day and indicates a pain score of Nonresponsive. MEDICAL/SURGICAL HISTORY: None. None. COMPARISON: No prior exams available for comparison. FINDINGS: 4 spot intraoperative fluoroscopic views of the right hip demonstrate intertrochanteric nail and intr amedullary kaylee fixation hardware placement across the right proximal femur. CONCLUSION: Postsurgical changes. Electronically signed by: Chapin Amezquita MD 09/29/2017 9:57 AM EDT
[2017-09-29 10:03] VITALS: BP 131/71; PULSE 83; RESP 18; TEMP 97.5; O2SAT 95
[2017-09-29] MEDS: THYROID 15 MG TAB PO SCH (10:53)
[2017-09-29] MEDS: DOCUSATE SODIUM 100 MG CAP PO SCH (10:53)
[2017-09-29] MEDS: CALCIUM/VITAMIN D 250 MG/125 U TAB PO SCH ×3 (10:54→18:00)
[2017-09-29] MEDS: CYANOCOBALAMIN 1,000 MCG TAB PO SCH (10:55)
[2017-09-29] MEDS: CHOLECALCIFEROL (VIT D3) 1000 UNIT TAB PO SCH (10:55)
[2017-09-29] MEDS: POTASSIUM CHLORIDE 10 MEQ CONTROLLED RELEASE TAB PO SCH (10:56)
[2017-09-29] MEDS: FUROSEMIDE 20 MG TAB PO SCH (10:57)
[2017-09-29 12:00] VITALS: BP 127/55; PULSE 76; RESP 18; TEMP 97.5; O2SAT 98
[2017-09-29] MEDS ORDERED: ePHEDrine/NS 25 MG/5 ML SYRINGE IV ONE (12:00)
[2017-09-29] MEDS ORDERED: PHENYLEPH/NS 1000 MCG/10 ML SYR IV ONE (12:00)
[2017-09-29] MEDS ORDERED: LIDOCAINE HCL 1% PF 5 ML SYRINGE OTHER ONE (12:00)
[2017-09-29] MEDS ORDERED: PROPOFOL 200 MG/20 ML AMP IV ONE (12:00)
[2017-09-29] MEDS ORDERED: ONDANSETRON HCL 4 MG/2 ML VIAL IV ONE (12:00)
--- NOTE | 2017-09-29 12:20 | PD.CARD.PN ---
Subjective Subjective Remarks Post-surgery this morning Doing well overall No complaints Objective Medications Current Medications Medications (Trade) Dose Ordered Sig/Rambo Route Start Time Stop Time Status Last Admin (NS Flush) 2 ml UNSCH PRN IV FLUSH 09/27/17 15:15 (Dulcolax Supp) 10 mg DAILY RECTAL 09/28/17 09:00 (Vitamin D3) 2,000 units DAILY PO 09/28/17 09:00 09/29/17 10:55 (Vitamin B12) 2,000 mcg DAILY PO 09/28/17 09:00 09/29/17 10:55 (Lexapro) 20 mg DAILY PO 09/28/17 09:00 09/28/17 09:43 (Lasix) 20 mg DAILY PO 09/28/17 09:00 09/29/17 10:57 (Xalatan 0.005% Opth Soln) 1 drop HS EACH EYE 09/27/17 21:00 09/28/17 21:01 (Betagan Liquifilm 0.5%) 1 drop BID EACH EYE 09/27/17 21:00 09/28/17 21:01 (Remeron) 15 mg HS PO 09/27/17 21:00 09/28/17 21:00 (KCl) 10 meq DAILY PO 09/28/17 09:00 09/29/17 10:56 ([place] Thyroid) 135 mg DAILY PO 09/28/17 09:00 Future hold 09/29/17 10:53 Patient Own Medication PT OWN MED: DILTIA... DAILY PO 09/28/17 09:00 Future Hold (Colace) 100 mg DAILY PO 09/28/17 09:00 09/29/17 10:53 Patient Own Medication PT OWN MED: PRESERVISION AREDS 2... DAILY PO 09/28/17 09:00 Future Hold (Morphine Inj) 2 mg Q4H PRN IV 09/27/17 21:30 09/28/17 21:01 Lactated Ringer's 1,000 ml @ 30 mls/hr Q24H PRN IV 09/28/17 03:30 10/01/17 03:29 09/29/17 05:12 Sodium Chloride 500 ml @ 30 mls/hr [id number] PRN IV 09/28/17 03:30 10/01/17 03:29 (Betadine 5% Antisepsis Kit) 1 applic WIRELESS TEAM MEMBER PRN EACH NARE 09/28/17 03:30 10/01/17 03:29 (Chlorhexidine 2% Cloth) 3 pack WIRELESS TEAM MEMBER PRN TOPICAL 09/28/17 03:30 10/01/17 03:29 (Lovenox Inj) 30 mg Q24H SQ 09/30/17 08:00 Cefazolin Sodium 1000 mg/Sodium Chloride 100 ml @ 200 mls/hr Q8H IV 09/29/17 12:00 09/30/17 04:29 09/29/17 10:57 (Oscal-D 250-125) 250 mg TID PO 09/29/17 09:00 09/29/17 10:54 (Benadryl) 25 mg Q6H PRN PO 09/29/17 08:30 ([facility] [place] Nursing Information) ALL NURSING DEPARTME... UNSCH PRN .XX 09/29/17 08:56 09/30/17 08:55 Vital Signs / I&O Vital Signs Date Time Temp Pulse Resp B/P (MAP) Pulse Ox O2 Delivery O2 Flow Rate FiO2 09/29/17 10:03 97.5 83 18 131/71 (91) 95 09/29/17 09:37 98.0 78 18 144/69 (94) 97 Nasal Cannula 2 09/29/17 09:15 79 18 120/68 (85) 97 Nasal Cannula 3 09/29/17 09:00 81 17 149/72 (97) 97 Nasal Cannula 3 09/29/17 08:49 97.6 85 17 159/75 (103) 95 Nasal Cannula 3 09/29/17 04:20 97.3 75 18 141/63 (89) 96 09/29/17 00:12 98.3 68 18 113/59 (77) 95 09/28/17 16:50 98.5 63 18 137/78 (97) 95 09/28/17 16:00 98.5 72 18 119/63 (81) 96 09/28/17 12:55 18 I/O 09/28/17 09/28/17 09/28/17 09/29/17 09/29/17 09/29/17 07:00 15:00 23:00 07:00 15:00 23:00 Intake Total 400 ml 480 ml 320 ml 600 ml Output Total 750 ml 600 ml 1200 ml 300 ml Balance -350 ml -120 ml -880 ml 300 ml Intake Oral 400 ml 480 ml 320 ml IV Total 600 ml Output Urine Total 750 ml 600 ml 1200 ml 200 ml Estimated Blood Loss 100 ml # Bowel Movements 0 0 Physical Exam GENERAL: NAD SKIN: Warm and dry. HEAD: Atraumatic. Normocephalic. EYES: Pupils equal and round. No scleral icterus. No injection or drainage. ENT: No nasal bleeding or discharge. Mucous membranes pink and moist. NECK: Trachea midline. No JVD. CARDIOVASCULAR: Irregularly irregular RESPIRATORY: No accessory muscle use. Clear to auscultation. Breath sounds equal bilaterally. GASTROINTESTINAL: Abdomen soft, non-tender, nondistended. Hepatic and splenic margins not palpable. MUSCULOSKELETAL: Extremities without clubbing, cyanosis, or edema. NEUROLOGICAL: Awake and alert. No obvious cranial nerve deficits. Motor grossly within normal limits. Five out of 5 muscle strength in the arms and legs. Normal speech. PSYCHIATRIC: Appropriate mood and affect; insight and judgment normal. Imaging Last 24 hours Impressions Hip X-Ray 09/29/17 0000 Signed Impressions: CONCLUSION: Postsurgical changes. Assessment and Plan Problem List: (1) Intertrochanteric fracture of right hip ICD Codes: S72.141A - Displaced intertrochanteric fracture of right femur, initial encounter for closed fracture Status: Acute (2) Afib ICD Codes: I48.91 - Unspecified atrial fibrillation Status: Acute (3) Anticoagulated ICD Codes: Z79.01 - long term care pharmacist (current) use of anticoagulants Status: Acute (4) History of pacemaker ICD Codes: Z95.0 - Presence of cardiac pacemaker Status: Acute Assessment and Plan 1) Mechanical fall leading to right hip fracture s/p ORIF 2) Afib Controlled rate Restart Xarelto when possible per Ortho 3) No further cardiovascular issues Follow up with Dr. Tirado as previously scheduled in the office Call with questions Problem Qualifiers (1) Intertrochanteric fracture of right hip: Qualified Codes: S72.144A - Nondisplaced intertrochanteric fracture of right femur, initial encounter for closed fracture Osmel Saez DO Sep 29, 2017 12:20
[2017-09-29] MEDS: MORPHINE SULFATE 4 MG/ML INJ IV PRN ×2 (12:59→16:00)
--- NOTE | 2017-09-29 13:39 | HHI.PR ---
Subjective Remarks Patient seen briefly enroute to OR for ORIF hip fracture. Objective Vital Signs Date Time Temp Pulse Resp B/P (MAP) Pulse Ox O2 Delivery O2 Flow Rate FiO2 09/29/17 12:00 97.5 76 18 127/55 (79) 98 09/29/17 10:03 97.5 83 18 131/71 (91) 95 09/29/17 09:37 98.0 78 18 144/69 (94) 97 Nasal Cannula 2 09/29/17 09:15 79 18 120/68 (85) 97 Nasal Cannula 3 09/29/17 09:00 81 17 149/72 (97) 97 Nasal Cannula 3 09/29/17 08:49 97.6 85 17 159/75 (103) 95 Nasal Cannula 3 09/29/17 04:20 97.3 75 18 141/63 (89) 96 09/29/17 00:12 98.3 68 18 113/59 (77) 95 09/28/17 16:50 98.5 63 18 137/78 (97) 95 09/28/17 16:00 98.5 72 18 119/63 (81) 96 I/O 09/28/17 09/28/17 09/28/17 09/29/17 09/29/17 09/29/17 07:00 15:00 23:00 07:00 15:00 23:00 Intake Total 400 ml 480 ml 320 ml 600 ml Output Total 750 ml 600 ml 1200 ml 300 ml Balance -350 ml -120 ml -880 ml 300 ml Intake Oral 400 ml 480 ml 320 ml IV Total 600 ml Output Urine Total 750 ml 600 ml 1200 ml 200 ml Estimated Blood Loss 100 ml # Bowel Movements 0 0 Result Diagram: 09/27/17 1515 09/27/17 1515 Imaging Last Impressions Hip X-Ray 09/29/17 0000 Signed Impressions: CONCLUSION: Postsurgical changes. Pelvis X-Ray 09/27/17 0000 Signed Impressions: CONCLUSION: Acute intertrochanteric right hip fracture. Head CT 09/27/17 0000 Signed Impressions: CONCLUSION: 1. Negative CT Head non contrast. Femur X-Ray 09/27/17 0000 Signed Impressions: CONCLUSION: Intertrochanteric fracture. Cervical Spine CT 09/27/17 0000 Signed Impressions: CONCLUSION: 1. No fracture or dislocation. 2. Pronounced diffuse degenerative changes. Procedures ORIF right hip fracture Objective Remarks GENERAL: Awake and alert enroute to OR SKIN: Warm and dry. HEAD: Normocephalic. EYES: No scleral icterus. No injection or drainage. NECK: Supple, trachea midline. No JVD or lymphadenopathy. CARDIOVASCULAR: Regular rate and rhythm without murmurs, gallops, or rubs. RESPIRATORY: Breath sounds equal bilaterally. No accessory muscle use. GASTROINTESTINAL: Abdomen soft, non-tender, nondistended. MUSCULOSKELETAL: No cyanosis, or edema. Right hip pain with splint in place. BACK: Nontender without obvious deformity. No CVA tenderness. Medications and IVs Current Medications Medications (Trade) Dose Ordered Sig/Rambo Route Start Time Stop Time Status Last Admin (NS Flush) 2 ml UNSCH PRN IV FLUSH 09/27/17 15:15 (Dulcolax Supp) 10 mg DAILY RECTAL 09/28/17 09:00 (Vitamin D3) 2,000 units DAILY PO 09/28/17 09:00 09/29/17 10:55 (Vitamin B12) 2,000 mcg DAILY PO 09/28/17 09:00 09/29/17 10:55 (Lexapro) 20 mg DAILY PO 09/28/17 09:00 09/28/17 09:43 (Lasix) 20 mg DAILY PO 09/28/17 09:00 09/29/17 10:57 (Xalatan 0.005% Opth Soln) 1 drop HS EACH EYE 09/27/17 21:00 09/28/17 21:01 (Betagan Liquifilm 0.5%) 1 drop BID EACH EYE 09/27/17 21:00 09/28/17 21:01 (Remeron) 15 mg HS PO 09/27/17 21:00 09/28/17 21:00 (KCl) 10 meq DAILY PO 09/28/17 09:00 09/29/17 10:56 ([place] Thyroid) 135 mg DAILY PO 09/28/17 09:00 Future hold 09/29/17 10:53 Patient Own Medication PT OWN MED: DILTIA... DAILY PO 09/28/17 09:00 Future Hold (Colace) 100 mg DAILY PO 09/28/17 09:00 09/29/17 10:53 Patient Own Medication PT OWN MED: PRESERVISION AREDS 2... DAILY PO 09/28/17 09:00 Future Hold (Morphine Inj) 2 mg Q4H PRN IV 09/27/17 21:30 09/29/17 12:59 Lactated Ringer's 1,000 ml @ 30 mls/hr Q24H PRN IV 09/28/17 03:30 10/01/17 03:29 09/29/17 05:12 Sodium Chloride 500 ml @ 30 mls/hr [id number] PRN IV 09/28/17 03:30 10/01/17 03:29 (Betadine 5% Antisepsis Kit) 1 applic BREAD PACKER PRN EACH NARE 09/28/17 03:30 10/01/17 03:29 (Chlorhexidine 2% Cloth) 3 pack BREAD PACKER PRN TOPICAL 09/28/17 03:30 10/01/17 03:29 (Lovenox Inj) 30 mg Q24H SQ 09/30/17 08:00 Cefazolin Sodium 1000 mg/Sodium Chloride 100 ml @ 200 mls/hr Q8H IV 09/29/17 12:00 09/30/17 04:29 09/29/17 10:57 (Oscal-D 250-125) 250 mg TID PO 09/29/17 09:00 09/29/17 12:59 (Benadryl) 25 mg Q6H PRN PO 09/29/17 08:30 ([facility] Nursing Information) ALL NURSING DEPARTME... UNSCH PRN .XX 09/29/17 08:56 09/30/17 08:55 Assessment and Plan Problem List: (1) Intertrochanteric fracture of right hip ICD Codes: S72.141A - Displaced intertrochanteric fracture of right femur, initial encounter for closed fracture Status: Acute Plan: F/U Ortho and Cards recommendations Assessment and Plan F/U Cards and Ortho recommendations S/P right femur fracture Discussed Condition With patient Discharge Planning home Problem Qualifiers (1) Intertrochanteric fracture of right hip: Qualified Codes: S72.144A - Nondisplaced intertrochanteric fracture of right femur, initial encounter for closed fracture Devonte Beasley Sep 29, 2017 13:39
[2017-09-29 16:00] VITALS: BP 125/61; PULSE 92; RESP 18; TEMP 97.8; O2SAT 92
[2017-09-29] MEDS ORDERED: LORazepam 0.5 MG TAB PO PRN (16:45)
[2017-09-29 19:30] VITALS: BP 110/59; PULSE 87; RESP 18; TEMP 98.9; O2SAT 96
[2017-09-29] MEDS: MIRTAZAPINE 15 MG TAB PO SCH (21:32)
[2017-09-29] MEDS: LATANOPROST 0.005% OPHT SOLN 2.5 ML BTL EACH EYE SCH (21:33)
[2017-09-30] VITALS: BP 111/64; PULSE 98; RESP 18; TEMP 97.9; O2SAT 97
[2017-09-30 04:00] VITALS: BP 100/64; PULSE 85; RESP 18; TEMP 98.1; O2SAT 96
[2017-09-30] MEDS: SODIUM CHLORIDE 0.9% FLUSH 10 ML FLUSH IV FLUSH PRN ×2 (04:06→04:48)
--- NOTE | 2017-09-30 06:43 | PD.ORT.PN ---
Subjective Subjective Remarks POD 1 s/p IMN right hip doing well. reports pain but controlled Objective Vitals Vital Signs Date Time Temp Pulse Resp B/P (MAP) Pulse Ox O2 Delivery O2 Flow Rate FiO2 09/30/17 04:00 98.1 85 18 100/64 (76) 96 09/30/17 00:00 97.9 98 18 111/64 (80) 97 09/29/17 19:30 98.9 87 18 110/59 (76) 96 09/29/17 16:00 97.8 92 18 125/61 (82) 92 09/29/17 12:00 97.5 76 18 127/55 (79) 98 09/29/17 10:03 97.5 83 18 131/71 (91) 95 09/29/17 09:37 98.0 78 18 144/69 (94) 97 Nasal Cannula 2 09/29/17 09:15 79 18 120/68 (85) 97 Nasal Cannula 3 09/29/17 09:00 81 17 149/72 (97) 97 Nasal Cannula 3 09/29/17 08:49 97.6 85 17 159/75 (103) 95 Nasal Cannula 3 I/O 09/29/17 09/29/17 09/29/17 09/30/17 09/30/17 09/30/17 07:00 15:00 23:00 07:00 15:00 23:00 Intake Total 320 ml 600 ml 120 ml Output Total 1200 ml 1100 ml 450 ml Balance -880 ml -500 ml -330 ml Intake Oral 320 ml 120 ml IV Total 600 ml Output Urine Total 1200 ml 1000 ml 450 ml Estimated Blood Loss 100 ml # Bowel Movements 0 1 Result Diagram: 09/27/17 1515 09/27/17 1515 Objective Remarks RLE: dressings clean and dry.intact. NVI Assessment & Plan Assessment and Plan 1) Right Intertroch hip fx s/p IMN - POD 1 -WBAT -daily dressing changes -CM for DC planning to SNf -f/u [facility] or [facility] in 2 weeks Eugenio Gillette/First Kin MARISCAL Sep 30, 2017 06:43
[2017-09-30 08:00] VITALS: BP 119/57; PULSE 78; RESP 17; TEMP 98; O2SAT 97
[2017-09-30] MEDS: LEVOBUNOLOL HCL 0.5% OPHT SOLN 5 ML BTL EACH EYE SCH ×2 (09:00→21:27)
[2017-09-30] MEDS: DOCUSATE SODIUM 100 MG CAP PO SCH (09:25)
[2017-09-30] MEDS: THYROID 15 MG TAB PO SCH (09:25)
[2017-09-30] MEDS: CYANOCOBALAMIN 1,000 MCG TAB PO SCH (09:25)
[2017-09-30] MEDS: CHOLECALCIFEROL (VIT D3) 1000 UNIT TAB PO SCH (09:25)
[2017-09-30] MEDS: ESCITALOPRAM OXALATE 20 MG TAB PO SCH (09:25)
[2017-09-30] MEDS: FUROSEMIDE 20 MG TAB PO SCH (09:26)
[2017-09-30] MEDS: CALCIUM/VITAMIN D 250 MG/125 U TAB PO SCH ×3 (09:26→17:47)
[2017-09-30] MEDS: ENOXAPARIN SODIUM 30 MG/0.3 ML SYRINGE SQ SCH (09:27)
[2017-09-30] MEDS: BISACODYL 10 MG SUPP RECTAL SCH (09:27)
[2017-09-30] MEDS: POTASSIUM CHLORIDE 10 MEQ CONTROLLED RELEASE TAB PO SCH (09:27)
--- NOTE | 2017-09-30 11:07 | HHI.PR ---
Subjective Remarks Up in chair with spouse present. Pleasantly confused, pain controlled currently Objective Vital Signs Date Time Temp Pulse Resp B/P (MAP) Pulse Ox O2 Delivery O2 Flow Rate FiO2 09/30/17 08:00 98.0 78 17 119/57 (77) 97 09/30/17 04:00 98.1 85 18 100/64 (76) 96 09/30/17 00:00 97.9 98 18 111/64 (80) 97 09/29/17 19:30 98.9 87 18 110/59 (76) 96 09/29/17 16:00 97.8 92 18 125/61 (82) 92 09/29/17 12:00 97.5 76 18 127/55 (79) 98 I/O 09/29/17 09/29/17 09/29/17 09/30/17 09/30/17 09/30/17 07:00 15:00 23:00 07:00 15:00 23:00 Intake Total 320 ml 600 ml 120 ml Output Total 1200 ml 1100 ml 450 ml Balance -880 ml -500 ml -330 ml Intake Oral 320 ml 120 ml IV Total 600 ml Output Urine Total 1200 ml 1000 ml 450 ml Estimated Blood Loss 100 ml # Bowel Movements 0 1 Result Diagram: 09/27/17 1515 09/27/17 1515 Imaging Last 72 hours Impressions Hip X-Ray 09/29/17 0000 Signed Impressions: CONCLUSION: Postsurgical changes. Procedures ORIF right hip fracture Objective Remarks Objective Remarks GENERAL: Awake, alert, pleasantly confused SKIN: Warm and dry. HEAD: Normocephalic. EYES: No scleral icterus. No injection or drainage. NECK: Supple, trachea midline. No JVD or lymphadenopathy. CARDIOVASCULAR: Regular rate and rhythm without murmurs, gallops, or rubs. RESPIRATORY: Breath sounds equal bilaterally, diminished at base, O2 2L GASTROINTESTINAL: Abdomen soft,distended, + BS MUSCULOSKELETAL: No cyanosis, or edema. Medications and IVs Current Medications Medications (Trade) Dose Ordered Sig/Rambo Route Start Time Stop Time Status Last Admin (NS Flush) 2 ml UNSCH PRN IV FLUSH 09/27/17 15:15 09/30/17 04:48 (Dulcolax Supp) 10 mg DAILY RECTAL 09/28/17 09:00 09/30/17 09:27 (Vitamin D3) 2,000 units DAILY PO 09/28/17 09:00 09/30/17 09:25 (Vitamin B12) 2,000 mcg DAILY PO 09/28/17 09:00 09/30/17 09:25 (Lexapro) 20 mg DAILY PO 09/28/17 09:00 09/30/17 09:25 (Lasix) 20 mg DAILY PO 09/28/17 09:00 09/30/17 09:26 (Xalatan 0.005% Opth Soln) 1 drop HS EACH EYE 09/27/17 21:00 09/29/17 21:33 (Betagan Liquifilm 0.5%) 1 drop BID EACH EYE 09/27/17 21:00 09/30/17 09:00 (Remeron) 15 mg HS PO 09/27/17 21:00 09/29/17 21:32 (KCl) 10 meq DAILY PO 09/28/17 09:00 09/30/17 09:27 ([place] Thyroid) 135 mg DAILY PO 09/28/17 09:00 Future hold 09/30/17 09:25 Patient Own Medication PT OWN MED: DILTIA... DAILY PO 09/28/17 09:00 Future Hold (Colace) 100 mg DAILY PO 09/28/17 09:00 09/30/17 09:25 Patient Own Medication PT OWN MED: PRESERVISION AREDS 2... DAILY PO 09/28/17 09:00 Future Hold (Morphine Inj) 2 mg Q4H PRN IV 09/27/17 21:30 09/29/17 16:00 Lactated Ringer's 1,000 ml @ 30 mls/hr Q24H PRN IV 09/28/17 03:30 10/01/17 03:29 09/29/17 05:12 Sodium Chloride 500 ml @ 30 mls/hr [id number] PRN IV 09/28/17 03:30 10/01/17 03:29 (Betadine 5% Antisepsis Kit) 1 applic LODGING MANAGER PRN EACH NARE 09/28/17 03:30 10/01/17 03:29 (Chlorhexidine 2% Cloth) 3 pack LODGING MANAGER PRN TOPICAL 09/28/17 03:30 10/01/17 03:29 (Lovenox Inj) 30 mg Q24H SQ 09/30/17 08:00 09/30/17 09:27 (Oscal-D 250-125) 250 mg TID PO 09/29/17 09:00 09/30/17 09:26 (Benadryl) 25 mg Q6H PRN PO 09/29/17 08:30 (Ativan) 0.5 mg Q8H PRN PO 09/29/17 16:45 Assessment and Plan Problem List: (1) Intertrochanteric fracture of right hip ICD Codes: S72.141A - Displaced intertrochanteric fracture of right femur, initial encounter for closed fracture Status: Acute (2) Afib ICD Codes: I48.91 - Unspecified atrial fibrillation Status: Acute Plan: Rate controlled, Lovenox (3) Hypothyroid ICD Codes: E03.9 - Hypothyroidism, unspecified Plan: Cont home medication, (4) Depression ICD Codes: F32.9 - Major depressive disorder, single episode, unspecified Status: Acute Plan: Cont Lexapro Assessment and Plan 09/30/17- Up in chair this am with spouse at bedside. He is pleasantly confused. Spouse voices it related to MS. He is on o2 2liters, pain currently controlled. He voices he does not want rehab he is going home, spouse voices he will need rehab. Will refer to tiff. HX of Afib, rate controlled on Lovenox. Labs in am Labs in am Problem Qualifiers (1) Intertrochanteric fracture of right hip: Qualified Codes: S72.144A - Nondisplaced intertrochanteric fracture of right femur, initial encounter for closed fracture Mahnaz Vargas Sep 30, 2017 11:07
[2017-09-30 12:00] VITALS: BP 166/71; PULSE 97; RESP 19; TEMP 97.3; O2SAT 95
[2017-09-30 13:56] LABS: HEMATOCRIT 38.1 % (39.0-51.0); HEMOGLOBIN 12.8 GM/DL (13.0-17.0)
[2017-09-30] MEDS ORDERED: risperiDONE 0.25 MG TAB PO ONE (17:45)
[2017-09-30] MEDS ORDERED: ACETAMINOPHEN/CODEINE 300 MG/30 MG TAB PO PRN (17:45)
[2017-09-30] MEDS ORDERED: PILL SPLITTER OTHER PRN (19:45)
[2017-09-30 20:00] VITALS: BP_SYST 131; BP_SYST 140; BP_DIAS 63; BP_DIAS 67; PULSE 91; RESP 18; TEMP 98.4; O2SAT 100; O2SAT 95
[2017-09-30] MEDS: risperiDONE 0.25 MG TAB PO SCH (21:27)
[2017-09-30] MEDS: MIRTAZAPINE 15 MG TAB PO SCH (21:27)
[2017-09-30] MEDS: LATANOPROST 0.005% OPHT SOLN 2.5 ML BTL EACH EYE SCH (21:27)
[2017-10-01 00:01] VITALS: BP 117/60; PULSE 97; RESP 18; TEMP 98; O2SAT 93
--- NOTE | 2017-10-01 06:35 | PD.ORT.PN ---
Subjective Subjective Remarks POD 2 s/p IMN right hip patient very confused overnight. does not know where he is at the moment Objective Vitals Vital Signs Date Time Temp Pulse Resp B/P (MAP) Pulse Ox O2 Delivery O2 Flow Rate FiO2 10/01/17 00:01 98.0 97 18 117/60 (79) 93 09/30/17 20:00 98.4 91 18 131/63 (85) 95 09/30/17 12:00 97.3 97 19 166/71 (102) 95 09/30/17 08:00 98.0 78 17 119/57 (77) 97 I/O 09/30/17 09/30/17 09/30/17 10/01/17 10/01/17 10/01/17 07:00 15:00 23:00 07:00 15:00 23:00 Intake Total 120 ml 240 ml Output Total 450 ml 750 ml Balance -330 ml -510 ml Intake Oral 120 ml 240 ml Output Urine Total 450 ml 750 ml # Bowel Movements 1 Result Diagram: 09/30/17 0930 09/27/17 1515 Objective Remarks RLE: dressings clean and dry.intact. NVI Assessment & Plan Assessment and Plan 1) Right Intertroch hip fx s/p IMN - POD 2 -WBAT -daily dressing changes -DVT prophylaxis with home dose xarelto -CM for DC planning to SNf -ortho clear for DC to SNF when medically stable -f/u [facility] or [facility] in 2 weeks Eugenio Gillette/Service Director PA Oct 01, 2017 06:35
[2017-10-01 08:00] VITALS: BP 117/58; PULSE 99; RESP 18; TEMP 97.9; O2SAT 92
[2017-10-01] MEDS: CYANOCOBALAMIN 1,000 MCG TAB PO SCH (08:02)
[2017-10-01] MEDS: ENOXAPARIN SODIUM 30 MG/0.3 ML SYRINGE SQ SCH (08:02)
[2017-10-01] MEDS: CALCIUM/VITAMIN D 250 MG/125 U TAB PO SCH ×3 (08:02→18:00)
[2017-10-01] MEDS: CHOLECALCIFEROL (VIT D3) 1000 UNIT TAB PO SCH (08:02)
[2017-10-01] MEDS: ESCITALOPRAM OXALATE 20 MG TAB PO SCH (08:02)
[2017-10-01] MEDS: LEVOBUNOLOL HCL 0.5% OPHT SOLN 5 ML BTL EACH EYE SCH ×2 (08:03→20:39)
[2017-10-01] MEDS: ACETAMINOPHEN/CODEINE 300 MG/30 MG TAB PO PRN ×2 (08:03→12:31)
[2017-10-01] MEDS: DOCUSATE SODIUM 100 MG CAP PO SCH (08:13)
[2017-10-01] MEDS: POTASSIUM CHLORIDE 10 MEQ CONTROLLED RELEASE TAB PO SCH (08:14)
[2017-10-01] MEDS: BISACODYL 10 MG SUPP RECTAL SCH (08:14)
[2017-10-01] MEDS: THYROID 30 MG TAB PO SCH (08:14)
[2017-10-01] MEDS: FUROSEMIDE 20 MG TAB PO SCH ×2 (08:14→08:20)
[2017-10-01] MEDS: risperiDONE 0.25 MG TAB PO SCH ×2 (08:14→20:40)
--- NOTE | 2017-10-01 09:57 | HHI.PR ---
Subjective Remarks Very confused this am and through night S/P ORIF PO day 2. No reports of pain Objective Vital Signs Date Time Temp Pulse Resp B/P (MAP) Pulse Ox O2 Delivery O2 Flow Rate FiO2 10/01/17 08:00 97.9 99 18 117/58 (77) 92 10/01/17 07:39 Room Air 10/01/17 00:01 98.0 97 18 117/60 (79) 93 09/30/17 20:00 98.4 91 18 131/63 (85) 95 09/30/17 12:00 97.3 97 19 166/71 (102) 95 I/O 09/30/17 09/30/17 09/30/17 10/01/17 10/01/17 10/01/17 07:00 15:00 23:00 07:00 15:00 23:00 Intake Total 120 ml 240 ml Output Total 450 ml 750 ml Balance -330 ml -510 ml Intake Oral 120 ml 240 ml Output Urine Total 450 ml 750 ml # Bowel Movements 1 Result Diagram: 09/30/17 0930 09/27/17 1515 Procedures ORIF right hip fracture Objective Remarks Objective Remarks GENERAL: Alert confused confused SKIN: Warm and dry. HEAD: Normocephalic. EYES: No scleral icterus. No injection or drainage. NECK: Supple, trachea midline. No JVD or lymphadenopathy. CARDIOVASCULAR: Regular rate and rhythm without murmurs, gallops, or rubs. RESPIRATORY: Breath sounds equal bilaterally, diminished at base GASTROINTESTINAL: Abdomen soft,distended, + BS MUSCULOSKELETAL: No cyanosis, or edema. Medications and IVs Current Medications Medications (Trade) Dose Ordered Sig/Rambo Route Start Time Stop Time Status Last Admin (NS Flush) 2 ml UNSCH PRN IV FLUSH 09/27/17 15:15 09/30/17 04:48 (Dulcolax Supp) 10 mg DAILY RECTAL 09/28/17 09:00 09/30/17 09:27 (Vitamin D3) 2,000 units DAILY PO 09/28/17 09:00 10/01/17 08:02 (Vitamin B12) 2,000 mcg DAILY PO 09/28/17 09:00 10/01/17 08:02 (Lexapro) 20 mg DAILY PO 09/28/17 09:00 10/01/17 08:02 (Lasix) 20 mg DAILY PO 09/28/17 09:00 09/30/17 09:26 (Xalatan 0.005% Opth Soln) 1 drop HS EACH EYE 09/27/17 21:00 09/30/17 21:27 (Betagan Liquifilm 0.5%) 1 drop BID EACH EYE 09/27/17 21:00 10/01/17 08:03 (Remeron) 15 mg HS PO 09/27/17 21:00 09/30/17 21:27 (KCl) 10 meq DAILY PO 09/28/17 09:00 10/01/17 08:14 Patient Own Medication PT OWN MED: DILTIA... DAILY PO 09/28/17 09:00 Future Hold (Colace) 100 mg DAILY PO 09/28/17 09:00 10/01/17 08:13 Patient Own Medication PT OWN MED: PRESERVISION AREDS 2... DAILY PO 09/28/17 09:00 Future Hold (Morphine Inj) 2 mg Q4H PRN IV 09/27/17 21:30 09/29/17 16:00 (Lovenox Inj) 30 mg Q24H SQ 09/30/17 08:00 10/01/17 08:02 (Oscal-D 250-125) 250 mg TID PO 09/29/17 09:00 10/01/17 08:02 (Benadryl) 25 mg Q6H PRN PO 09/29/17 08:30 (Ativan) 0.5 mg Q8H PRN PO 09/29/17 16:45 (risperDAL) 0.25 mg BID PO 09/30/17 21:00 10/01/17 08:14 (Tylenol-Codeine #3) 1 tab Q4H PRN PO 09/30/17 17:45 10/01/17 08:03 (Tylenol-Codeine #3) 2 tab Q4H PRN PO 09/30/17 17:45 ([place] Thyroid) 135 mg DAILY PO 10/01/17 09:00 10/01/17 08:14 (Pill Splitter) 1 ea UNSCH PRN OTHER 09/30/17 19:45 Assessment and Plan Problem List: (1) Intertrochanteric fracture of right hip ICD Codes: S72.141A - Displaced intertrochanteric fracture of right femur, initial encounter for closed fracture Status: Acute (2) Afib ICD Codes: I48.91 - Unspecified atrial fibrillation Status: Acute Plan: Rate controlled, Lovenox (3) Hypothyroid ICD Codes: E03.9 - Hypothyroidism, unspecified Plan: Cont home medication, (4) Depression ICD Codes: F32.9 - Major depressive disorder, single episode, unspecified Status: Acute Plan: Cont Lexapro Assessment and Plan 09/30/17- Up in chair this am with spouse at bedside. He is pleasantly confused. Spouse voices it related to MS. He is on o2 2liters, pain currently controlled. He voices he does not want rehab he is going home, spouse voices he will need rehab. Will refer to tiff. HX of Afib, rate controlled on Lovenox. Labs in am Labs in am 10/01/17- Patient confused through night, and this am. Not sure where he is and what happened. Mediations adjusted, pain Meds held. Will consult neurology. VSS afebrile. Problem Qualifiers (1) Intertrochanteric fracture of right hip: Qualified Codes: S72.144A - Nondisplaced intertrochanteric fracture of right femur, initial encounter for closed fracture Mahnaz Vargas Oct 01, 2017 09:56
[2017-10-01 12:00] VITALS: BP 123/60; PULSE 98; RESP 18; TEMP 97.5; O2SAT 95
[2017-10-01 12:57] LABS: AUTOMATED NEUTROPHIL # 9.5 TH/MM3 (1.8-7.7); BASOPHIL % 0.1 % (0.0-2.0); EOSINOPHIL % 0.1 % (0.0-4.0); HEMATOCRIT 35.2 % (39.0-51.0); HEMOGLOBIN 12.1 GM/DL (13.0-17.0); LYMPH % 10.3 % (9.0-44.0); LYMPHOCYTE # 1.2 TH/MM3 (1.0-4.8); MEAN CELL VOLUME 95.5 FL (80.0-100.0); MEAN CORPUSCULAR HEMOGLOBIN 32.9 PG (27.0-34.0); MEAN CORPUSCULAR HGB CONC 34.4 % (32.0-36.0); MEAN PLATELET VOLUME 8.7 FL (7.0-11.0); MONO % 9.2 % (0.0-8.0); MONOCYTE # 1.1 TH/MM3 (0-0.9); NEUT % 80.3 % (16.0-70.0); PLATELET COUNT 184 TH/MM3 (150-450); RED BLOOD COUNT 3.69 MIL/MM3 (4.50-5.90); RED CELL DISTRIBUTION WIDTH 13.3 % (11.6-17.2); WHITE BLOOD COUNT 11.9 TH/MM3 (4.0-11.0)
[2017-10-01 13:13] LABS: BICARBONATE 27.7 MEQ/L (21.0-32.0); CALCIUM 8.4 MG/DL (8.5-10.1); CREATININE 0.78 MG/DL (0.60-1.30)
--- NOTE | 2017-10-01 15:26 | PD.CONS ---
History of Present Illness Service Neurology Consult Requested By Medical for confusion Primary Care Physician Salvador Mondragon, History of Present Illness 89-year-old gentleman admitted for fall. Found to have right femur fracture which she had operated on. Postop has been noted to be confused. Has a pacemaker atrial fibrillation is on chronic anticoagulation. Denies any headache fever chest pain dyspnea. Does admit to some right leg weakness since fall. Information obtained from medical chart due to patient's confusion Review of Systems 12 point negative rest as above Past Family Social History Allergies: Coded Allergies: fluoxetine (Unverified Allergy, Severe, hallucinations, 12/04/16) along with tramadol caused hallucinations levobunolol (Unverified Allergy, Severe, UNKNOWN-ON PTS HISTORY AND PHYSICAL, 12/04/16) tramadol (Unverified Allergy, Severe, hallucinations, 12/04/16) along with prozac caused hallucinations azithromycin (Unverified Allergy, Mild, rash, 12/04/16) hives Reported Medications Reported Meds & Active Scripts Active Reported Stool Softener (Docusate Sodium) 100 Mg Tab 100 Mg PO DAILY Dulcolax Supp (Bisacodyl) 10 Mg Supp 10 Mg RECTAL DAILY Remeron (Mirtazapine) 15 Mg Tab 15 Mg PO HS Vitamin D3 (Cholecalciferol) 2,000 Unit Cap 2,000 Units PO DAILY Vitamin B-12 (Cyanocobalamin) 1,000 Mcg Tab 2,000 Mcg PO DAILY Preservision Areds 2 Softgel (Vit C/E/Zn/Coppr/Lutein/Zeaxan) 250-200-40 Capsule 1 Cap PO DAILY Lexapro (Escitalopram Oxalate) 20 Mg Tab 20 Mg PO DAILY Latanoprost Opth Drops (Latanoprost) 0.005% Drops 1 Drop EACH EYE HS Refrigerate until opened. Levobunolol Opth Drops (Levobunolol HCl) 0.5% Drops 1 Drop EACH EYE BID Potassium Chloride ER (Potassium Chloride) 10 Meq Tab 10 Meq PO DAILY Lasix (Furosemide) 20 Mg Tab 20 Mg PO DAILY AT 12NOON Lasix (Furosemide) 40 Mg Tab 40 Mg PO DAILY IN THE AM Diltiazem ER 12 HR (Diltiazem HCl) 60 Mg Caper 60 Mg PO DAILY [place] Thyroid (Thyroid) 15 Mg Tab 135 Mg PO DAILY Take 1 tablet (15mg) with a 120mg tablet for a total dose of 135mg [place] Thyroid (Thyroid) 120 Mg Tab 135 Mg PO DAILY Take 1 tablet (120mg) with a 15mg tablet for a total dose of 135mg Xarelto (Rivaroxaban) 20 Mg Tab 20 Mg PO DAILY Active Ordered Medications depression a fib hptn djd Family History father in old age mother of cancer Social History non smoker occ wine drinker Review of Systems All other ROS: ROS reviewed as documented in chart Past Family Social History Allergies: Coded Allergies: fluoxetine (Unverified Allergy, Severe, hallucinations, 12/04/16) along with tramadol caused hallucinations levobunolol (Unverified Allergy, Severe, UNKNOWN-ON PTS HISTORY AND PHYSICAL, 12/04/16) tramadol (Unverified Allergy, Severe, hallucinations, 12/04/16) along with prozac caused hallucinations azithromycin (Unverified Allergy, Mild, rash, 12/04/16) hives Active Ordered Medications Current Medications Medications (Trade) Dose Ordered Sig/Rambo Route Start Time Stop Time Status Last Admin (NS Flush) 2 ml UNSCH PRN IV FLUSH 09/27/17 15:15 09/30/17 04:48 (Dulcolax Supp) 10 mg DAILY RECTAL 09/28/17 09:00 09/30/17 09:27 (Vitamin D3) 2,000 units DAILY PO 09/28/17 09:00 10/01/17 08:02 (Vitamin B12) 2,000 mcg DAILY PO 09/28/17 09:00 10/01/17 08:02 (Lexapro) 20 mg DAILY PO 09/28/17 09:00 10/01/17 08:02 (Lasix) 20 mg DAILY PO 09/28/17 09:00 09/30/17 09:26 (Xalatan 0.005% Opth Soln) 1 drop HS EACH EYE 09/27/17 21:00 09/30/17 21:27 (Betagan Liquifilm 0.5%) 1 drop BID EACH EYE 09/27/17 21:00 10/01/17 08:03 (Remeron) 15 mg HS PO 09/27/17 21:00 09/30/17 21:27 (KCl) 10 meq DAILY PO 09/28/17 09:00 10/01/17 08:14 Patient Own Medication PT OWN MED: DILTIA... DAILY PO 09/28/17 09:00 Future Hold (Colace) 100 mg DAILY PO 09/28/17 09:00 10/01/17 08:13 Patient Own Medication PT OWN MED: PRESERVISION AREDS 2... DAILY PO 09/28/17 09:00 Future Hold (Morphine Inj) 2 mg Q4H PRN IV 09/27/17 21:30 09/29/17 16:00 (Lovenox Inj) 30 mg Q24H SQ 09/30/17 08:00 10/01/17 08:02 (Oscal-D 250-125) 250 mg TID PO 09/29/17 09:00 10/01/17 12:28 (Benadryl) 25 mg Q6H PRN PO 09/29/17 08:30 (Ativan) 0.5 mg Q8H PRN PO 09/29/17 16:45 (risperDAL) 0.25 mg BID PO 09/30/17 21:00 10/01/17 08:14 (Tylenol-Codeine #3) 1 tab Q4H PRN PO 09/30/17 17:45 10/01/17 12:31 (Tylenol-Codeine #3) 2 tab Q4H PRN PO 09/30/17 17:45 ([place] Thyroid) 135 mg DAILY PO 10/01/17 09:00 10/01/17 08:14 (Pill Splitter) 1 ea UNSCH PRN OTHER 09/30/17 19:45 Exam I&O / VS Vital Signs Date Time Temp Pulse Resp B/P (MAP) Pulse Ox O2 Delivery O2 Flow Rate FiO2 10/01/17 12:00 97.5 98 18 123/60 (81) 95 10/01/17 08:00 97.9 99 18 117/58 (77) 92 10/01/17 07:39 Room Air 10/01/17 00:01 98.0 97 18 117/60 (79) 93 09/30/17 20:00 98.4 91 18 131/63 (85) 95 General: No acute distress Eye: EOMI Respiratory: Non-labored respirations Neurologic: Alert Psychiatric: Cooperative Exam Comments 89-year-old gentleman sitting up in chair comfortably awake alert oriented to himself and place was able given him his primary care physician. Little confused and appear to have occasional visual hallucination. Can follow once a motor request. Able to name simple objects. Current president states Trump. Extraocular movements intact left surgical cataract extraction change noted visual matson full no facial asymmetry [place] all 4 extremity to gravity with the exception of reduced range of motion right upper extremity with abduction past shoulder and right lower extremity hip flexor paresis related to his recent fracture reflexes symmetric Review/Management Diagnosis/Plan: (1) Encephalopathy, metabolic ICD Codes: G93.41 - Metabolic encephalopathy Status: Acute Plan: Current postop May relate a postanesthesia effect versus embolic infarcts History of atrial fibrillation Recommendations Would reinitiate anticoagulation if feasible CT brain noncontrast Check a UA EEG Follow exam (2) Pacemaker ICD Codes: Z95.0 - Presence of cardiac pacemaker Status: Acute (3) Afib ICD Codes: I48.91 - Unspecified atrial fibrillation Status: Chronic Plan: Usually takes Xarelto daily (4) Intertrochanteric fracture of right hip ICD Codes: S72.141A - Displaced intertrochanteric fracture of right femur, initial encounter for closed fracture Status: Acute Plan: Postop, or the following Problem Qualifiers (1) Afib: Qualified Codes: I48.2 - Chronic atrial fibrillation (2) Intertrochanteric fracture of right hip: Qualified Codes: S72.144A - Nondisplaced intertrochanteric fracture of right femur, initial encounter for closed fracture Wilberto Malone MD Oct 01, 2017 15:26
[2017-10-01 16:00] VITALS: BP 134/70; PULSE 101; RESP 18; TEMP 97.5; O2SAT 94
[2017-10-01] MEDS: RIVAROXABAN 20 MG TAB PO SCH (17:02)
[2017-10-01 20:00] VITALS: BP 134/75; PULSE 105; RESP 19; TEMP 97.4; O2SAT 96
[2017-10-01] MEDS: LATANOPROST 0.005% OPHT SOLN 2.5 ML BTL EACH EYE SCH (20:40)
[2017-10-01] MEDS: MIRTAZAPINE 15 MG TAB PO SCH (20:40)
[2017-10-01 21:58] LABS: BILIRUBIN, URINE NEG (NEG); BLOOD, URINE NEG (NEG); GLUCOSE,URINE NEG (NEG); HYALINE CAST, URINE 3 /lpf (RARE); KETONE, URINE 10 mg/dL (NEG); MUCUS URINE MOD /lpf (OCC); NITRITE,URINE NEG (NEG); URINE LEUKOCYTE ESTERASE NEG (NEG)
[2017-10-01 22:09] LABS: URINE COLOR AMBER (YELLW/STRAW)
[2017-10-02 00:01] VITALS: BP 128/65; PULSE 99; RESP 18; TEMP 97.5; O2SAT 94
[2017-10-02 08:00] VITALS: BP 136/64; PULSE 103; RESP 18; TEMP 98.1; O2SAT 95
--- NOTE | 2017-10-02 08:10 | HHI.PR ---
Subjective Remarks Very confused this am and through night S/P ORIF Objective Vital Signs Date Time Temp Pulse Resp B/P (MAP) Pulse Ox O2 Delivery O2 Flow Rate FiO2 10/02/17 06:55 Room Air 10/02/17 00:01 97.5 99 18 128/65 (86) 94 10/01/17 20:00 97.4 105 19 134/75 (94) 96 10/01/17 16:00 97.5 101 18 134/70 (91) 94 10/01/17 12:00 97.5 98 18 123/60 (81) 95 I/O 10/01/17 10/01/17 10/01/17 10/02/17 10/02/17 10/02/17 07:00 15:00 23:00 07:00 15:00 23:00 Intake Total 240 ml 240 ml 240 ml Output Total 750 ml 725 ml Balance -510 ml 240 ml -485 ml Intake Oral 240 ml 240 ml 240 ml Output Urine Total 750 ml 725 ml # Voids 1 # Bowel Movements 0 2 Result Diagram: 10/01/17 1210 10/01/17 1210 Procedures ORIF right hip fracture Objective Remarks Objective Remarks GENERAL: Alert confused confused SKIN: Warm and dry. HEAD: Normocephalic. EYES: No scleral icterus. No injection or drainage. NECK: Supple, trachea midline. No JVD or lymphadenopathy. CARDIOVASCULAR: Regular rate and rhythm without murmurs, gallops, or rubs. RESPIRATORY: Breath sounds equal bilaterally, diminished at base Male - Penis Ecchymotic, no discharge, or palpable lumps GASTROINTESTINAL: Abdomen soft,distended, + BS MUSCULOSKELETAL: No cyanosis, or edema. Medications and IVs Current Medications Medications (Trade) Dose Ordered Sig/Rambo Route Start Time Stop Time Status Last Admin (NS Flush) 2 ml UNSCH PRN IV FLUSH 09/27/17 15:15 09/30/17 04:48 (Dulcolax Supp) 10 mg DAILY RECTAL 09/28/17 09:00 09/30/17 09:27 (Vitamin D3) 2,000 units DAILY PO 09/28/17 09:00 10/01/17 08:02 (Vitamin B12) 2,000 mcg DAILY PO 09/28/17 09:00 10/01/17 08:02 (Lexapro) 20 mg DAILY PO 09/28/17 09:00 10/01/17 08:02 (Lasix) 20 mg DAILY PO 09/28/17 09:00 09/30/17 09:26 (Xalatan 0.005% Opth Soln) 1 drop HS EACH EYE 09/27/17 21:00 10/01/17 20:40 (Betagan Liquifilm 0.5%) 1 drop BID EACH EYE 09/27/17 21:00 10/01/17 20:39 (Remeron) 15 mg HS PO 09/27/17 21:00 10/01/17 20:40 (KCl) 10 meq DAILY PO 09/28/17 09:00 10/01/17 08:14 Patient Own Medication PT OWN MED: DILTIA... DAILY PO 09/28/17 09:00 Future Hold (Colace) 100 mg DAILY PO 09/28/17 09:00 10/01/17 08:13 Patient Own Medication PT OWN MED: PRESERVISION AREDS 2... DAILY PO 09/28/17 09:00 Future Hold (Morphine Inj) 2 mg Q4H PRN IV 09/27/17 21:30 09/29/17 16:00 (Oscal-D 250-125) 250 mg TID PO 09/29/17 09:00 10/01/17 18:00 (Ativan) 0.5 mg Q8H PRN PO 09/29/17 16:45 (risperDAL) 0.25 mg BID PO 09/30/17 21:00 10/01/17 20:40 (Tylenol-Codeine #3) 1 tab Q4H PRN PO 09/30/17 17:45 10/01/17 12:31 (Tylenol-Codeine #3) 2 tab Q4H PRN PO 09/30/17 17:45 ([place] Thyroid) 135 mg DAILY PO 10/01/17 09:00 10/01/17 08:14 (Pill Splitter) 1 ea UNSCH PRN OTHER 09/30/17 19:45 (Xarelto) 20 mg DAILY PO 10/01/17 16:00 10/01/17 17:02 Assessment and Plan Problem List: (1) Intertrochanteric fracture of right hip ICD Codes: S72.141A - Displaced intertrochanteric fracture of right femur, initial encounter for closed fracture Status: Acute (2) Afib ICD Codes: I48.91 - Unspecified atrial fibrillation Status: Chronic Plan: Rate controlled, Lovenox (3) Hypothyroid ICD Codes: E03.9 - Hypothyroidism, unspecified Plan: Cont home medication, (4) Depression ICD Codes: F32.9 - Major depressive disorder, single episode, unspecified Status: Acute Plan: Cont Lexapro Assessment and Plan 09/30/17- Up in chair this am with spouse at bedside. He is pleasantly confused. Spouse voices it related to MS. He is on o2 2liters, pain currently controlled. He voices he does not want rehab he is going home, spouse voices he will need rehab. Will refer to [facility]. HX of Afib, rate controlled on Lovenox. Labs in am Labs in am 10/01/17- Patient confused through night, and this am. Not sure where he is and what happened. Mediations adjusted, pain Meds held. Will consult neurology. VSS afebrile. /- More confused this am. Nonsensical talk. VSS, He does have noted ecchymosis to complete penis, No pain, no noted injury or lumps/bumps. No noted discharge, he is on blood thinner. Seen by Neuro yesterday, CT completed not dictated. EEG to be done today. Likely confusion r/t anaesthesia and pain medications. He has been accepted at [facility], Once test complete and cleared with Neuro may be dc'd. Discussed with nurse. Problem Qualifiers (1) Intertrochanteric fracture of right hip: Qualified Codes: S72.144A - Nondisplaced intertrochanteric fracture of right femur, initial encounter for closed fracture (2) Afib: Qualified Codes: I48.2 - Chronic atrial fibrillation Mahnaz Vargas Oct 02, 2017 08:10
[2017-10-02] MEDS: CHOLECALCIFEROL (VIT D3) 1000 UNIT TAB PO SCH (09:00)
[2017-10-02] MEDS: BISACODYL 10 MG SUPP RECTAL SCH (09:00)
[2017-10-02] MEDS: FUROSEMIDE 20 MG TAB PO SCH (09:00)
--- NOTE | 2017-10-02 09:14 | RADRPT ---
EXAM DATE: 10/01/2017 9:45 PM EDT AGE/SEX: 89 years / Male INDICATIONS: Altered mental status. CLINICAL DATA: This is the patient's initial encounter. Patient reports that signs and symptoms have been present for 1 day and indicates a pain score of 0/10. MEDICAL/SURGICAL HISTORY: Carcinoma, prostatic. Hypertension. Pacemaker. Prostatectomy. Inguinal hernia repair. Appendectomy. RADIATION DOSE: 66.26 CTDI (mGy) COMPARISON: [facility] [place], CT BRAIN W/O CONTRAST, 09/27/2017. . TECHNIQUE: CT of the head without contrast. Using automated exposure control and adjustment of the mA and/or kV according to patient size, radiation dose was kept as low as reasonably achievable to ob tain optimal diagnostic quality images. FINDINGS: There is central and cortical atrophy with dilatation of ventricular and sulcal spaces. There is no parenchymal hemorrhage, acute infarction or mass lesion identified. There are no extra-axial fluid c ollections appreciated. Periventricular white matter changes are noted. The posterior fossa is unrem arkable with midline fourth ventricle. The portion of the orbits and paranasal sinuses visualized are unremarkable. CONCLUSION: Atrophy, otherwise negative for an acute process. Mark Goldman MD FACR Electronically signed by: Mark Goldman MD 10/01/2017 9:47 PM EDT
[2017-10-02] MEDS: ESCITALOPRAM OXALATE 20 MG TAB PO SCH (09:19)
[2017-10-02] MEDS: CALCIUM/VITAMIN D 250 MG/125 U TAB PO SCH ×3 (09:19→17:33)
[2017-10-02] MEDS: DOCUSATE SODIUM 100 MG CAP PO SCH (09:19)
[2017-10-02] MEDS: THYROID 30 MG TAB PO SCH (09:19)
[2017-10-02] MEDS: risperiDONE 0.25 MG TAB PO SCH ×2 (09:20→20:39)
[2017-10-02] MEDS: POTASSIUM CHLORIDE 10 MEQ CONTROLLED RELEASE TAB PO SCH (09:20)
[2017-10-02] MEDS: CYANOCOBALAMIN 1,000 MCG TAB PO SCH (09:20)
[2017-10-02] MEDS: RIVAROXABAN 20 MG TAB PO SCH (09:20)
[2017-10-02] MEDS: ACETAMINOPHEN/CODEINE 300 MG/30 MG TAB PO PRN ×3 (09:20→20:39)
[2017-10-02] MEDS: LEVOBUNOLOL HCL 0.5% OPHT SOLN 5 ML BTL EACH EYE SCH ×2 (09:21→20:39)
[2017-10-02 12:00] VITALS: BP 138/70; PULSE 100; RESP 18; TEMP 98; O2SAT 95
[2017-10-02 12:33] LABS: AUTOMATED NEUTROPHIL # 9.1 TH/MM3 (1.8-7.7); BASOPHIL % 0.3 % (0.0-2.0); EOSINOPHIL # 0.1 TH/MM3 (0-0.4); EOSINOPHIL % 0.5 % (0.0-4.0); HEMATOCRIT 34.3 % (39.0-51.0); HEMOGLOBIN 11.8 GM/DL (13.0-17.0); LYMPH % 12.3 % (9.0-44.0); LYMPHOCYTE # 1.5 TH/MM3 (1.0-4.8); MEAN CELL VOLUME 94.3 FL (80.0-100.0); MEAN CORPUSCULAR HEMOGLOBIN 32.4 PG (27.0-34.0); MEAN CORPUSCULAR HGB CONC 34.4 % (32.0-36.0); MEAN PLATELET VOLUME 8.4 FL (7.0-11.0); MONO % 10.3 % (0.0-8.0); MONOCYTE # 1.2 TH/MM3 (0-0.9); NEUT % 76.6 % (16.0-70.0); PLATELET COUNT 226 TH/MM3 (150-450); RED BLOOD COUNT 3.64 MIL/MM3 (4.50-5.90); RED CELL DISTRIBUTION WIDTH 13.2 % (11.6-17.2); WHITE BLOOD COUNT 11.9 TH/MM3 (4.0-11.0)
[2017-10-02 16:00] VITALS: BP 158/74; PULSE 95; RESP 18; TEMP 98.9; O2SAT 95
[2017-10-02 20:00] VITALS: BP 148/92; PULSE 108; RESP 19; TEMP 97.4; O2SAT 96
[2017-10-02] MEDS: LATANOPROST 0.005% OPHT SOLN 2.5 ML BTL EACH EYE SCH (20:39)
[2017-10-02] MEDS: MIRTAZAPINE 15 MG TAB PO SCH (20:39)
--- NOTE | 2017-10-02 21:35 | MG ---
cc: Wilberto Malone MD, Mandeep MD EEG NUMBER [id number] 6-8 Hz activity, 20-40 microvolts in the posterior channels, frontal beta, theta frequencies. Slow eye movements, attenuation of background, occasional delta bursts suggestive of drowsy state. Limited driving with photic stimulation. Single lead EKG showing an irregularly irregular rhythm. INTERPRETATION: Very minimal encephalopathy and drowsy state. Cardiac arrhythmia. MD SANDRITA [place]/ , 09:09 PM , 09:33 PM
[2017-10-03 00:01] VITALS: BP 110/55; PULSE 99; RESP 18; TEMP 97.9; O2SAT 94
[2017-10-03] MEDS: BISACODYL 10 MG SUPP RECTAL SCH (07:40)
[2017-10-03 08:00] VITALS: BP 124/66; PULSE 91; RESP 21; TEMP 98.8; O2SAT 95
[2017-10-03] MEDS: THYROID 30 MG TAB PO SCH (08:45)
[2017-10-03] MEDS: ESCITALOPRAM OXALATE 20 MG TAB PO SCH (08:45)
[2017-10-03] MEDS: FUROSEMIDE 20 MG TAB PO SCH (08:45)
[2017-10-03] MEDS: LEVOBUNOLOL HCL 0.5% OPHT SOLN 5 ML BTL EACH EYE SCH (08:45)
[2017-10-03] MEDS: RIVAROXABAN 20 MG TAB PO SCH (08:46)
[2017-10-03] MEDS: DOCUSATE SODIUM 100 MG CAP PO SCH (08:46)
[2017-10-03] MEDS: CHOLECALCIFEROL (VIT D3) 1000 UNIT TAB PO SCH (08:46)
[2017-10-03] MEDS: POTASSIUM CHLORIDE 10 MEQ CONTROLLED RELEASE TAB PO SCH (08:46)
[2017-10-03] MEDS: CYANOCOBALAMIN 1,000 MCG TAB PO SCH (08:46)
[2017-10-03] MEDS: risperiDONE 0.25 MG TAB PO SCH (08:46)
[2017-10-03] MEDS: CALCIUM/VITAMIN D 250 MG/125 U TAB PO SCH ×2 (08:46→12:01)
--- NOTE | 2017-10-03 09:38 | HHI.PR ---
Review/Management Diagnosis/Plan: (1) Encephalopathy, metabolic ICD Codes: G93.41 - Metabolic encephalopathy Status: Acute Plan: Current postop May relate a postanesthesia effect versus embolic infarcts History of atrial fibrillation Recommendations reduce remeron to 7.5mg qhs; a little groggy this am EEG- minimal encephalopathy Follow exam (2) Pacemaker ICD Codes: Z95.0 - Presence of cardiac pacemaker Status: Acute (3) Afib ICD Codes: I48.91 - Unspecified atrial fibrillation Status: Chronic Plan: Usually takes Xarelto daily (4) Intertrochanteric fracture of right hip ICD Codes: S72.141A - Displaced intertrochanteric fracture of right femur, initial encounter for closed fracture Status: Acute Plan: Postop, or the following Subjective Subjective Comments No acute events reported No headache No chest pain No dyspnea Active Medications Current Medications Medications (Trade) Dose Ordered Sig/Rambo Route Start Time Stop Time Status Last Admin (NS Flush) 2 ml UNSCH PRN IV FLUSH 09/27/17 15:15 09/30/17 04:48 (Dulcolax Supp) 10 mg DAILY RECTAL 09/28/17 09:00 09/30/17 09:27 (Vitamin D3) 2,000 units DAILY PO 09/28/17 09:00 10/03/17 08:46 (Vitamin B12) 2,000 mcg DAILY PO 09/28/17 09:00 10/03/17 08:46 (Lexapro) 20 mg DAILY PO 09/28/17 09:00 10/03/17 08:45 (Lasix) 20 mg DAILY PO 09/28/17 09:00 10/03/17 08:45 (Xalatan 0.005% Opt Soln) 1 drop HS EACH EYE 09/27/17 21:00 10/02/17 20:39 (Betagan Liquifilm 0.5%) 1 drop BID EACH EYE 09/27/17 21:00 10/03/17 08:45 (Remeron) 15 mg HS PO 09/27/17 21:00 10/02/17 20:39 (KCl) 10 meq DAILY PO 09/28/17 09:00 10/03/17 08:46 Patient Own Medication PT OWN MED: DILTIA... DAILY PO 09/28/17 09:00 Future Hold (Colace) 100 mg DAILY PO 09/28/17 09:00 10/03/17 08:46 Patient Own Medication PT OWN MED: PRESERVISION AREDS 2... DAILY PO 09/28/17 09:00 Future Hold (Morphine Inj) 2 mg Q4H PRN IV 09/27/17 21:30 09/29/17 16:00 (Oscal-D 250-125) 250 mg TID PO 09/29/17 09:00 10/03/17 08:46 (Ativan) 0.5 mg Q8H PRN PO 09/29/17 16:45 (risperDAL) 0.25 mg BID PO 09/30/17 21:00 10/03/17 08:46 (Tylenol-Codeine #3) 1 tab Q4H PRN PO 09/30/17 17:45 10/02/17 20:39 (Tylenol-Codeine #3) 2 tab Q4H PRN PO 09/30/17 17:45 ([place] Thyroid) 135 mg DAILY PO 10/01/17 09:00 10/03/17 08:45 (Pill Splitter) 1 ea UNSCH PRN OTHER 09/30/17 19:45 (Xarelto) 20 mg DAILY PO 10/01/17 16:00 10/03/17 08:46 Allergies Allergies Coded Allergies fluoxetine (Unverified Allergy, Severe, hallucinations, 12/04/16) levobunolol (Unverified Allergy, Severe, UNKNOWN-ON PTS HISTORY AND PHYSICAL, 12/04/16) tramadol (Unverified Allergy, Severe, hallucinations, 12/04/16) azithromycin (Unverified Allergy, Mild, rash, 12/04/16) Review of Systems All other ROS: ROS reviewed as documented in chart Exam I&O / VS Vital Signs Date Time Temp Pulse Resp B/P (MAP) Pulse Ox O2 Delivery O2 Flow Rate FiO2 10/03/17 08:00 98.8 91 21 124/66 (85) 95 10/03/17 07:53 Room Air 10/03/17 00:01 97.9 99 18 110/55 (73) 94 10/02/17 20:00 97.4 108 19 148/92 (110) 96 10/02/17 16:00 98.9 95 18 158/74 (102) 95 10/02/17 12:00 98.0 100 18 138/70 (92) 95 General: No acute distress Eye: EOMI Respiratory: Non-labored respirations Neurologic: Alert Psychiatric: Cooperative Exam Comments sleeping, arousable but can't sustain attention, Can follow once a motor request. Extraocular movements intact left surgical cataract extraction change noted visual matson full no facial asymmetry all 4 extremity to gravity with the exception of reduced range of motion right upper extremity with abduction past shoulder and right lower extremity hip flexor paresis related to his recent fracture reflexes symmetric Objective Micro and Labs Laboratory Tests Test 10/02/17 11:45 White Blood Count 11.9 Red Blood Count 3.64 Hemoglobin 11.8 Hematocrit 34.3 Mean Corpuscular Volume 94.3 Mean Corpuscular Hemoglobin 32.4 Mean Corpuscular Hemoglobin Concent 34.4 Red Cell Distribution Width 13.2 Platelet Count 226 Mean Platelet Volume 8.4 Neutrophils (%) (Auto) 76.6 Lymphocytes (%) (Auto) 12.3 Monocytes (%) (Auto) 10.3 Eosinophils (%) (Auto) 0.5 Basophils (%) (Auto) 0.3 Neutrophils # (Auto) 9.1 Lymphocytes # (Auto) 1.5 Monocytes # (Auto) 1.2 Eosinophils # (Auto) 0.1 Basophils # (Auto) 0.0 CBC Comment DIFF FINAL Differential Comment Problem Qualifiers (1) Afib: Qualified Codes: I48.2 - Chronic atrial fibrillation (2) Intertrochanteric fracture of right hip: Qualified Codes: S72.144A - Nondisplaced intertrochanteric fracture of right femur, initial encounter for closed fracture Wilberto Malone MD Oct 03, 2017 09:38
--- NOTE | 2017-10-03 09:56 | HHI.PR ---
Subjective Remarks Very sleepy this am, but abusable S/P ORIF Objective Vital Signs Date Time Temp Pulse Resp B/P (MAP) Pulse Ox O2 Delivery O2 Flow Rate FiO2 10/03/17 08:00 98.8 91 21 124/66 (85) 95 10/03/17 07:53 Room Air 10/03/17 00:01 97.9 99 18 110/55 (73) 94 10/02/17 20:00 97.4 108 19 148/92 (110) 96 10/02/17 16:00 98.9 95 18 158/74 (102) 95 10/02/17 12:00 98.0 100 18 138/70 (92) 95 I/O 10/02/17 10/02/17 10/02/17 10/03/17 10/03/17 10/03/17 07:00 15:00 23:00 07:00 15:00 23:00 Intake Total 240 ml 220 ml Output Total 725 ml Balance -485 ml 220 ml Intake Oral 240 ml 220 ml Output Urine Total 725 ml # Voids 2 1 # Bowel Movements 2 Result Diagram: 10/02/17 1145 10/01/17 1210 Imaging Last [address] 10/01/17 0000 Signed Impressions: CONCLUSION: Atrophy, otherwise negative for an acute process. Mark Goldman MD FACR Procedures ORIF right hip fracture EEG 10/05/17 Objective Remarks Objective Remarks GENERAL: well nourished male no distress, sleepy SKIN: Warm and dry. HEAD: Normocephalic. EYES: No scleral icterus. No injection or drainage. NECK: Supple, trachea midline. No JVD or lymphadenopathy. CARDIOVASCULAR: Regular rate and rhythm without murmurs, gallops, or rubs. RESPIRATORY: Breath sounds equal bilaterally, diminished at base Male - Penis Ecchymotic, no discharge, or palpable lumps GASTROINTESTINAL: Abdomen soft,distended, + BS MUSCULOSKELETAL: No cyanosis, or edema. Medications and IVs Current Medications Medications (Trade) Dose Ordered Sig/Rambo Route Start Time Stop Time Status Last Admin (NS Flush) 2 ml UNSCH PRN IV FLUSH 09/27/17 15:15 09/30/17 04:48 (Dulcolax Supp) 10 mg DAILY RECTAL 09/28/17 09:00 09/30/17 09:27 (Vitamin D3) 2,000 units DAILY PO 09/28/17 09:00 10/03/17 08:46 (Vitamin B12) 2,000 mcg DAILY PO 09/28/17 09:00 10/03/17 08:46 (Lexapro) 20 mg DAILY PO 09/28/17 09:00 10/03/17 08:45 (Lasix) 20 mg DAILY PO 09/28/17 09:00 10/03/17 08:45 (Xalatan 0.005% Opth Soln) 1 drop HS EACH EYE 09/27/17 21:00 10/02/17 20:39 (Betagan Liquifilm 0.5%) 1 drop BID EACH EYE 09/27/17 21:00 10/03/17 08:45 (KCl) 10 meq DAILY PO 09/28/17 09:00 10/03/17 08:46 Patient Own Medication PT OWN MED: DILTIA... DAILY PO 09/28/17 09:00 Future Hold (Colace) 100 mg DAILY PO 09/28/17 09:00 10/03/17 08:46 Patient Own Medication PT OWN MED: PRESERVISION AREDS 2... DAILY PO 09/28/17 09:00 Future Hold (Morphine Inj) 2 mg Q4H PRN IV 09/27/17 21:30 09/29/17 16:00 (Oscal-D 250-125) 250 mg TID PO 09/29/17 09:00 10/03/17 08:46 (Ativan) 0.5 mg Q8H PRN PO 09/29/17 16:45 (risperDAL) 0.25 mg BID PO 09/30/17 21:00 10/03/17 08:46 (Tylenol-Codeine #3) 1 tab Q4H PRN PO 09/30/17 17:45 10/02/17 20:39 (Tylenol-Codeine #3) 2 tab Q4H PRN PO 09/30/17 17:45 ([place] Thyroid) 135 mg DAILY PO 10/01/17 09:00 10/03/17 08:45 (Pill Splitter) 1 ea UNSCH PRN OTHER 09/30/17 19:45 (Xarelto) 20 mg DAILY PO 10/01/17 16:00 10/03/17 08:46 (Remeron) 7.5 mg HS PO 10/03/17 21:00 UNV Assessment and Plan Problem List: (1) Intertrochanteric fracture of right hip ICD Codes: S72.141A - Displaced intertrochanteric fracture of right femur, initial encounter for closed fracture Status: Acute (2) Afib ICD Codes: I48.91 - Unspecified atrial fibrillation Status: Chronic Plan: Rate controlled, Lovenox (3) Hypothyroid ICD Codes: E03.9 - Hypothyroidism, unspecified Plan: Cont home medication, (4) Depression ICD Codes: F32.9 - Major depressive disorder, single episode, unspecified Status: Acute Plan: Cont Lexapro Assessment and Plan 09/30/17- Up in chair this am with spouse at bedside. He is pleasantly confused. Spouse voices it related to MS. He is on o2 2liters, pain currently controlled. He voices he does not want rehab he is going home, spouse voices he will need rehab. Will refer to [facility]. HX of Afib, rate controlled on Lovenox. Labs in am Labs in am 10/01/17- Patient confused through night, and this am. Not sure where he is and what happened. Mediations adjusted, pain Meds held. Will consult neurology. VSS afebrile. - More confused this am. Nonsensical talk. VSS, He does have noted ecchymosis to complete penis, No pain, no noted injury or lumps/bumps. No noted discharge, he is on blood thinner. Seen by Neuro yesterday, CT completed not dictated. EEG to be done today. Likely confusion r/t anaesthesia and pain medications. He has been accepted at [facility], Once test complete and cleared with Neuro may be dc'd. Discussed with nurse. 10/03/17- No complaints over night. He is sleepy today, but abusable. VSS, Sat' s maintained on room air. EEG completed yesterday, CT head negative for acute process. on Xarelto for afib, rate controlled. Accepted to [facility] . Problem Qualifiers (1) Intertrochanteric fracture of right hip: Qualified Codes: S72.144A - Nondisplaced intertrochanteric fracture of right femur, initial encounter for closed fracture (2) Afib: Qualified Codes: I48.2 - Chronic atrial fibrillation Mahnaz Vargas Oct 03, 2017 09:56
[2017-10-03] MEDS ORDERED: LORA-392 PO (11:49)
[2017-10-03] MEDS ORDERED: XARE20TA PO (11:49)
[2017-10-03] MEDS ORDERED: ACET1TAB94 PO (11:49)
--- NOTE | 2017-10-03 11:54 | HHI.DS ---
Discharge Summary Admission Date Sep 27, 2017 at 17:12 Admitting Diagnosis Right hip fracture Procedures ORIF right hip fracture EEG 10/05/17 CBC/BMP: 10/02/17 1145 10/01/17 1210 Significant Findings Laboratory Tests Test 10/01/17 12:10 10/01/17 20:37 10/02/17 11:45 White Blood Count 11.9 TH/MM3 (4.0-11.0) 11.9 TH/MM3 (4.0-11.0) Red Blood Count 3.69 MIL/MM3 (4.50-5.90) 3.64 MIL/MM3 (4.50-5.90) Hemoglobin 12.1 GM/DL (13.0-17.0) 11.8 GM/DL (13.0-17.0) Hematocrit 35.2 % (39.0-51.0) 34.3 % (39.0-51.0) Neutrophils (%) (Auto) 80.3 % (16.0-70.0) 76.6 % (16.0-70.0) Monocytes (%) (Auto) 9.2 % (0.0-8.0) 10.3 % (0.0-8.0) Neutrophils # (Auto) 9.5 TH/MM3 (1.8-7.7) 9.1 TH/MM3 (1.8-7.7) Monocytes # (Auto) 1.1 TH/MM3 (0-0.9) 1.2 TH/MM3 (0-0.9) Random Glucose 127 MG/DL (74-106) Calcium Level 8.4 MG/DL (8.5-10.1) Urine Color JOO (YELLW/STRAW) Urine Ketones 10 mg/dL (NEG) Urine Mucus MOD /lpf (OCC) PE at Discharge Objective Remarks GENERAL: well nourished male no distress, sleepy SKIN: Warm and dry. HEAD: Normocephalic. EYES: No scleral icterus. No injection or drainage. NECK: Supple, trachea midline. No JVD or lymphadenopathy. CARDIOVASCULAR: Regular rate and rhythm without murmurs, gallops, or rubs. RESPIRATORY: Breath sounds equal bilaterally, diminished at base Male - Penis Ecchymotic, no discharge, or palpable lumps GASTROINTESTINAL: Abdomen soft,distended, + BS MUSCULOSKELETAL: No cyanosis, or edema. Hospital Course s/p Right Intertroch hip fx s/p IMN -on 09/29. Had post op confusion, evaluated by Neurology. CT head negative for acute process, EEG shoed mild encephalopathy and cardiac arrhythmia. He is on Xarelto for Afib rate controlled hx pacemaker. Discharge Disposition: Rehab Inpatient Discharge Instructions DIET: Follow Instructions for: Heart Healthy Diet Speech Therapy-Diet Recommenda: Regular Activities you can perform: Weight Bearing as Sylvia Follow up Referrals: Orthopedics - 2 Weeks @ [facility] with Mason Garrido MD New Medications: Calcium Carbonate-Vitamin D (Calcium 600+D 200) 600-200 Mg-Unit Tab 1 TAB PO BID for Nutritional Supplement, #60 TAB 0 Refills Cholecalciferol (Vitamin D3) 2,000 Unit Cap 2000 UNITS PO DAILY for Nutritional Supplement, #60 CAP 0 Refills Ergocalciferol (Ergocalciferol) 50,000 Unit Cap 06996 UNITS PO Q7D for Nutritional Supplement, #8 CAP Hydrocodone-Acetaminophen (Hydrocodone-Acetaminophen) 7.5 Mg-325 Mg Tab 1 TAB PO Q4H PRN for PAIN, #60 TAB 0 Refills Walker/Adult/Folding (Walker/Adult/Folding) 1 Mis Mis EA .XX DIRECTED, #1 0 Refills Acetaminophen-Codeine (Acetaminophen-Codeine) 300-30 mg Tab 1 TAB PO Q4H PRN for PAIN SCALE 1 TO 5, #30 TAB Acetaminophen-Codeine (Acetaminophen-Codeine) 300-30 mg Tab 2 TAB PO Q4H PRN for PAIN SCALE 6 TO 10 for 30 Days, #360 TAB Lorazepam (Ativan) 0.5 Mg Tab 0.5 MG PO Q8H PRN for MUSCLE SPASM, #30 TAB Rivaroxaban (Xarelto) 20 Mg Tab 20 MG PO DAILY for blood clots for 30 Days, #30 TAB Continued Medications: Bisacodyl Supp (Dulcolax Supp) 10 Mg Supp 10 MG RECTAL DAILY for Constipation, #12 SUPP 0 Refills Cholecalciferol (Vitamin D3) 2,000 Unit Cap 2000 UNITS PO DAILY for Nutritional Supplement, #56 CAP 0 Refills Cyanocobalamin (Vitamin B-12) 1,000 Mcg Tab 2000 MCG PO DAILY for Nutritional Supplement, #1 BOTTLE 0 Refills Diltiazem ER 12 HR (Diltiazem ER 12 HR) 60 Mg Caper 60 MG PO DAILY, #60 CAP 0 Refills Docusate Sodium (Stool Softener) 100 Mg Tab 100 MG PO DAILY for Constipation Escitalopram (Lexapro) 20 Mg Tab 20 MG PO DAILY, #30 TAB 0 Refills Furosemide (Lasix) 20 Mg Tab 20 MG PO DAILY AT 12NOON, #30 TAB 0 Refills Latanoprost Opth Drops (Latanoprost Opth Drops) 0.005% Drops 1 DROP EACH EYE HS for Glaucoma, #2.5 ML 0 Refills Refrigerate until opened. Levobunolol Opth Drops (Levobunolol Opth Drops) 0.5% Drops 1 DROP EACH EYE BID for Glaucoma, #1 BOTTLE 0 Refills Mirtazapine (Remeron) 15 Mg Tab 15 MG PO HS for Depression Control, #30 TAB 0 Refills Potassium Chloride ER (Potassium Chloride ER) 10 Meq Tab 10 MEQ PO DAILY for Electrolyte Replacement, #30 TAB 0 Refills Rivaroxaban (Xarelto) 20 Mg Tab 20 MG PO DAILY for Blood Clot Prevention, TAB 0 Refills Thyroid ([place] Thyroid) 120 Mg Tab 135 MG PO DAILY for Thyroid Supplement, #30 TAB 0 Refills Take 1 tablet (120mg) with a 15mg tablet for a total dose of 135mg Thyroid ([place] Thyroid) 15 Mg Tab 135 MG PO DAILY for Thyroid Supplement, #30 TAB 0 Refills Take 1 tablet (15mg) with a 120mg tablet for a total dose of 135mg Vit C/E/Zn/Coppr/Lutein/Zeaxan (Preservision Areds 2 Softgel) 250-200-40 Capsule 1 CAP PO DAILY for Nutritional Supplement Discontinued Medications: Furosemide (Lasix) 40 Mg Tab 40 MG PO DAILY IN THE AM, #30 TAB 0 Refills Mahnaz Vargas Oct 03, 2017 11:54
[2017-10-03] MEDS ORDERED: MIRTAZAPINE 15 MG TAB PO SCH (21:00)
== END 2017-10-03 14:38 | DRG 480 ==
LOC: NEPC 14:57 → NEDA 17:12 → N06B 18:39 → N06A 18:41 → N06B 19:17 → N06A 19:18
PROVIDERS: ADMIT Family Medicine; ATTEND Family Medicine
PROC: 0QS636Z Reposition Right Upper Femur with Intramedullary Internal Fixation Device, Percutaneous Approach (ICD-10-PCS; principal; 2017-09-29 07:41)
DX: S72.141A Displaced intertrochanteric fracture of right femur, initial encounter for closed fracture (principal); G93.41 Metabolic encephalopathy; G62.9 Polyneuropathy, unspecified; I48.2 Chronic atrial fibrillation; Z79.02 Long term (current) use of antithrombotics/antiplatelets; I10 Essential (primary) hypertension; F32.9 Major depressive disorder, single episode, unspecified; E03.9 Hypothyroidism, unspecified; M19.90 Unspecified osteoarthritis, unspecified site; W18.39XA Other fall on same level, initial encounter; Y92.481 Parking lot as the place of occurrence of the external cause; Z95.0 Presence of cardiac pacemaker; Z96.611 Presence of right artificial shoulder joint; Z85.46 Personal history of malignant neoplasm of prostate
CPT/HCPCS: 70450; 72125; 72170; 73502; 73552; 76000; 80048; 81001; 82306; 82948; 85014; 85018; 85025; 85610; 85730; 93005; 95819; 99285; C1713; J0131; J0690; J1650; J2270; J2370; J2405; J3010; J3370; J7050; J7120